=== PATIENT | female | born 1995 | race African-American/Black ===

== ENCOUNTER 2017-09-09 06:29 | Emergency (ER) | payer SELFPAY ==
[2017-09-09 08:20] LABS: #Basophils 0.1 thou/uL (0.0-0.2); #Lymphocytes 3.8 thou/uL (1.20-3.40); #Monocytes 0.5 thou/uL (0.11-0.59); #Neutrophils 6.1 thou/uL (1.40-6.50); %Basophils 0.9 % (0.0-1.0); %Eosinophils 0.4 % (0.0-10.0); %Lymphocytes 35.7 % (21.0-51.0); %Monocytes 5.2 % (0.0-10.0); Hematocrit 38.9 % (36.0-47.0); Mean Platelet Volume 7.2 fL (7.4-10.4); Red Blood Cell (RBC) Count 5.01 mill/uL (4.20-5.40); White Blood Cell (WBC) Count 10.6 thou/uL (4.8-10.8)
[2017-09-09 08:28] LABS: Bilirubin Negative (Negative); Blood, Urine Negative (Negative); Glucose, Urine (Dipstick) Negative (Negative); Ketone, Urine Negative (Negative); Nitrite Negative (Negative); Protein, Urine (Dipstick) Negative (Neg-Trace); Urobilinogen 0.2 mg/dL (0.2-1.0)
[2017-09-09] MEDS ORDERED: Acetaminophen 500 MG TAB ONE (08:42)
[2017-09-09] MEDS ORDERED: diphenhydrAMINE 50 MG/ML VIAL ONE (08:42)
[2017-09-09] MEDS ORDERED: Metoclopramide HCl 10 MG/2 ML VIAL ONE (08:42)
[2017-09-09 08:49] LABS: Anion Gap 11 mmol/L (10-20); BUN (Urea Nitrogen) 7 mg/dL (7.0-18.7); Calc. Creatinine Clearance 0 mL/min (70-130); Calcium 9.7 mg/dL (7.8-10.44); Carbon Dioxide 23 mmol/L (22-29); Chloride 103 mmol/L (98-107); Estimated GFR-MDRD Greater than 90
--- NOTE | 2017-09-09 09:28 | ULT ---
PELVIC ULTRASOUND: Date: 09/09/17 HISTORY: Pelvic pain. FINDINGS: There is a viable intrauterine . Gestational age by ultrasound is 6 weeks and 2 days. Gesta tional sac appears normally maintained. Yolk sac is seen. heart rate recorded at 112 beats/min native. No evidence of subchorionic hemorrhage. There is a complex right ovarian cyst measuring 3.0 cm. Color Doppler with spectral analysis shows b lood flow to both ovaries. IMPRESSION: 1. Single viable intrauterine with gestational age by ultrasound consistent with 6 weeks and 2 days gestation. 2. Right ovarian cyst. POS: [facility]
== END 2017-09-09 10:29 | disposition home or self-care (01) ==
LOC: ERS 06:29
DX: O21.0 Mild hyperemesis gravidarum (principal); O99.341 Other mental disorders complicating pregnancy, first trimester; F31.9 Bipolar disorder, unspecified; O24.311 Unspecified pre-existing diabetes mellitus in pregnancy, first trimester; E11.9 Type 2 diabetes mellitus without complications; Z79.4 Long term (current) use of insulin; Z3A.01 Less than 8 weeks gestation of pregnancy
CPT/HCPCS: 76856; 80048; 81003; 84702; 85025; 87086; 96361; 96365; 96375; J1200; J2765

== ENCOUNTER 2017-09-12 12:31 | Emergency (ER) | payer SELFPAY ==
[2017-09-12] MEDS ORDERED: Acetaminophen 325 MG TAB ONE (12:59)
== END 2017-09-12 13:26 | disposition home or self-care (01) ==
LOC: ERS 12:31
DX: O9A.211 Injury, poisoning and certain other consequences of external causes complicating pregnancy, first trimester (principal); T88.1XXA Other complications following immunization, not elsewhere classified, initial encounter; O99.89 Other specified diseases and conditions complicating pregnancy, childbirth and the puerperium; R11.0 Nausea; O99.341 Other mental disorders complicating pregnancy, first trimester; F31.9 Bipolar disorder, unspecified; O24.911 Unspecified diabetes mellitus in pregnancy, first trimester; E11.9 Type 2 diabetes mellitus without complications; Z79.4 Long term (current) use of insulin; Z3A.01 Less than 8 weeks gestation of pregnancy
CPT/HCPCS: 99283

== ENCOUNTER 2017-10-09 16:55 | Emergency (ER) | payer SELFPAY ==
[2017-10-09 17:51] LABS: Bilirubin Negative (Negative); Blood, Urine Negative (Negative); Glucose, Urine (Dipstick) Negative (Negative); Ketone, Urine Negative (Negative); Nitrite Negative (Negative); Protein, Urine (Dipstick) Negative (Neg-Trace); Urobilinogen 0.2 mg/dL (0.2-1.0)
[2017-10-09 18:17] LABS: #Basophils 0.1 thou/uL (0.0-0.2); #Lymphocytes 2.6 thou/uL (1.20-3.40); #Monocytes 0.7 thou/uL (0.11-0.59); #Neutrophils 5.8 thou/uL (1.40-6.50); %Basophils 0.6 % (0.0-1.0); %Eosinophils 0.5 % (0.0-10.0); %Lymphocytes 28.2 % (21.0-51.0); %Monocytes 7.9 % (0.0-10.0); Red Blood Cell (RBC) Count 4.59 mill/uL (4.20-5.40); White Blood Cell (WBC) Count 9.3 thou/uL (4.8-10.8)
[2017-10-09 18:25] LABS: ALT (SGPT) 23 U/L (8-55); AST (SGOT) 13 U/L (5-34); Alkaline Phosphatase 71 U/L (40-150); Anion Gap 12 mmol/L (10-20); BUN (Urea Nitrogen) 6 mg/dL (7.0-18.7); Bilirubin, Total 0.3 mg/dL (0.2-1.2); Calc. Creatinine Clearance 0 mL/min (70-130); Calcium 9.4 mg/dL (7.8-10.44); Carbon Dioxide 22 mmol/L (22-29); Chloride 106 mmol/L (98-107); Estimated GFR-MDRD Greater than 90; Globulin 3.6 g/dL (2.4-3.5); Lipase 13 U/L (8-78); Protein, Total 7.5 g/dL (6.0-8.3)
[2017-10-09] MEDS ORDERED: Metoclopramide HCl 10 MG/2 ML VIAL ONE (18:34)
[2017-10-09 18:49] LABS: Anion Gap 9 mmol/L (-14-95); T. Carbon Dioxide 23.7 mmol/L (1.0-85.0); pH (Venous) 7.379 (7.35-7.45); vO2 Saturation-calc 84.8 % (0.0-100.0)
== END 2017-10-09 20:24 | disposition home or self-care (01) ==
LOC: ERS 16:55
DX: O99.611 Diseases of the digestive system complicating pregnancy, first trimester (principal); K52.9 Noninfective gastroenteritis and colitis, unspecified; O24.311 Unspecified pre-existing diabetes mellitus in pregnancy, first trimester; O99.341 Other mental disorders complicating pregnancy, first trimester; F31.9 Bipolar disorder, unspecified; Z79.4 Long term (current) use of insulin; Z79.899 Other long term (current) drug therapy; Z3A.10 10 weeks gestation of pregnancy
CPT/HCPCS: 80053; 81003; 81025; 82010; 82330; 82803; 83690; 84702; 85025; 96361; 96365; J2765

== ENCOUNTER 2017-11-13 18:30 | Emergency (ER) | payer SELFPAY ==
[2017-11-13 18:57] LABS: #Basophils 0.1 thou/uL (0.0-0.2); #Monocytes 0.6 thou/uL (0.11-0.59); #Neutrophils 8.2 thou/uL (1.40-6.50); %Basophils 0.7 % (0.0-1.0); %Eosinophils 0.3 % (0.0-10.0); %Lymphocytes 25.2 % (21.0-51.0); %Monocytes 5.1 % (0.0-10.0); Hematocrit 34.4 % (36.0-47.0); Mean Platelet Volume 6.8 fL (7.4-10.4); Red Blood Cell (RBC) Count 4.43 mill/uL (4.20-5.40)
[2017-11-13 19:17] LABS: ALT (SGPT) 10 U/L (8-55); AST (SGOT) 8 U/L (5-34); Alkaline Phosphatase 78 U/L (40-150); Anion Gap 11 mmol/L (10-20); BUN (Urea Nitrogen) 7 mg/dL (7.0-18.7); Bilirubin, Total 0.2 mg/dL (0.2-1.2); Calc. Creatinine Clearance 0 mL/min (70-130); Calcium 9.7 mg/dL (7.8-10.44); Carbon Dioxide 22 mmol/L (22-29); Chloride 105 mmol/L (98-107); Estimated GFR-MDRD Greater than 90; Globulin 3.9 g/dL (2.4-3.5); Protein, Total 7.7 g/dL (6.0-8.3)
== END 2017-11-13 19:35 | disposition left against medical advice (07) ==
LOC: ERS 18:30
DX: Z53.21 Procedure and treatment not carried out due to patient leaving prior to being seen by health care provider (principal)
CPT/HCPCS: 36415; 80053; 84702; 85025

== ENCOUNTER 2018-01-18 18:41 | Day surgery (SDC) | payer OTHER ==
[2018-01-18 19:32] VITALS: BMI 41.1
[2018-01-18] MEDS ORDERED: Lactated Ringer's 1,000 ML IV SCH ×2 (19:45)
[2018-01-18] MEDS ORDERED: Morphine 5 MG/ML SYRINGE SLOW IVP SCH (20:00)
[2018-01-18] MEDS ORDERED: Ondansetron HCl/PF 4 MG/2 ML Vial IVP SCH (20:00)
[2018-01-18 20:06] LABS: Bilirubin Negative (Negative); Blood, Urine Negative (Negative); Clarity CLEAR (Clear); Glucose, Urine (Dipstick) Negative (Negative); Leukocyte Negative (Negative); Nitrite Negative (Negative); Protein, Urine (Dipstick) Negative (Neg-Trace); Specific Gravity, Urine 1.018 (1.002-1.036)
[2018-01-18 20:08] LABS: Bacteria/HPF Rare-Few HPF (None Seen); Hyaline Casts/LPF 0-3 HYALINE CAST LPF (0-3 Hyaline); Pathc Cast-AUWi Flag 0.13 (0-2.49); RBC/HPF 0-3 HPF (0-3); Squamous Epithelial 0-3 HPF (0-3); WBC/HPF 0-3 HPF (0-3)
[2018-01-18] MEDS ORDERED: Morphine 10 MG/ML VIAL ONE (20:19)
[2018-01-18 20:28] LABS: FFN Internal QC Analyzer PASS (PASS); FFN Internal QC Cassette PASS (PASS); Fetal Fibronectin Negative (Negative)
[2018-01-18] MEDS ORDERED: Morphine 2 MG/ML SYRINGE SLOW IVP SCH (21:45)
[2018-01-18] MEDS ORDERED: Acetaminophen 500 MG TAB PO SCH (21:45)
[2018-01-18] MEDS ORDERED: Morphine 2 MG/ML SYRINGE IJ SCH (22:00)
--- NOTE | 2018-01-19 01:03 | PRG ---
DATE OF SERVICE: 01/18/2018 OB ER ENCOUNTER PRIMARY OB: Dr. Bronson. CHIEF COMPLAINT: Abdominal pains and back pain. HISTORY OF PRESENT ILLNESS: The patient is a 22-year-old G1, P0 female with an intrauterine at 24 weeks, who is presenting to Labor and Delivery with 1 day history of worsening lower back pain with pelvic pain and pressure. The patient reports that the back pain has progressively gotten worse over several days and is most notable with activities such as getting out of bed, getting out of the car and movement in general. She reports there is a second pain that seems to come and go that she feels pressure in her lower pelvic region that has gotten more intense. She reports that she feels that every 10- 15 minutes. The patient denies intercourse in the last couple days. Denies urinary urgency. Denies fever, nausea, vomiting, diarrhea or constipation. She denies vaginal bleeding or leakage of fluid. She denies any rash. She denies chest pain, shortness of breath, fever, fall or headache. PAST MEDICAL HISTORY: The patient reports a history of bipolar disorder, depression. PAST SURGICAL HISTORY: Tonsillectomy. SOCIAL HISTORY: Denies any alcohol, drug or tobacco use at this . OBSTETRIC HISTORY: This is her first . OBSTETRIC LABORATORY DATA: Unavailable. REVIEW OF SYSTEMS: Per HPI. PRESCRIPTION: None. ALLERGIES: No known drug allergies. PHYSICAL EXAMINATION: VITAL SIGNS: Blood pressure 126/74, heart rate of 89, respiratory rate of 18, satting 99% on room air, temperature 98.1. GENERAL: She appears to be in no acute distress. The patient appears to be in some distress and concern and shows some difficulty in moving. She is alert and oriented and cooperative and pleasant to interact with. HEAD: Normocephalic, atraumatic. LUNGS: Clear to auscultation bilaterally. HEART: Regular rate and rhythm. ABDOMEN: Gravid and soft. She has some tenderness to palpation in her lower pelvis. The patient has no CVA tenderness. There is no paravertebral tenderness. She does have tenderness in her SI joint region to palpation, which seems to be her primary pain and shows visible discomfort in trying to sitting up. EXTREMITIES: Nontender, not edematous. PELVIC: Vulva is without masses, lesions or erythema. Vagina is moist. Cervix is closed and thick. heart tracing performed for threatened labor. Baseline is noted to be in the 150s with moderate long-term variability, there are no contractions visible on the tocometer. Fetus fibronectin collected was came back negative. VP3 positive for bacterial vaginosis or Gardnerella. Urinalysis was negative for nitrites, leukocyte esterase, blood ketones, bacteria. ASSESSMENT AND PLAN: The patient is a 22-year-old female that came in with a significant back and abdominal pain that seems to be primarily musculoskeletal. We are able to give her morphine 2mg IV and 4mg IM and 1000mg p.o. Tylenol, which has improved her pain significantly. We provided reassurance that chances of her going into labor in the next couple weeks or very low with negative fibronectin. We explained the findings of Gardnerella and bacterial vaginosis and I have offered a prescription of metronidazole to be taken twice a day for the next week, which she is accepted. We reviewed the negative findings of her urinalysis. The patient has been encouraged to take Tylenol 1 gram of 3 times a day. She has an appointment on the with Dr. Bronson, which we have encouraged that if she does not feel improvement in the next couple days to attempt to see her sooner. LAMBERT
== END 2018-01-18 22:23 | disposition home or self-care (01) ==
LOC: L&D/OP 18:41 → ERS 18:41 → L&D/OP 18:44
PROVIDERS: ATTEND Obstetrics & Gynecology
DX: O99.89 Other specified diseases and conditions complicating pregnancy, childbirth and the puerperium (principal); R10.2 Pelvic and perineal pain; M54.5 Low back pain; O99.343 Other mental disorders complicating pregnancy, third trimester; F31.9 Bipolar disorder, unspecified; Z3A.24 24 weeks gestation of pregnancy; Z79.899 Other long term (current) drug therapy
CPT/HCPCS: 81001; 82731; 87480; 87510; 87660; J2270; J2405

== ENCOUNTER 2018-02-16 19:21 | Day surgery (SDC) | payer OTHER ==
[2018-02-16 21:09] VITALS: BP 118/73; TEMP 98.7; BMI 42.0
[2018-02-16] MEDS ORDERED: Promethazine HCl 25 MG/ML VIAL IM/IV PRN (21:21)
--- NOTE | 2018-02-16 21:21 | PDOC.EVN ---
Event Note - Event Note Event Note: @2115: order caller note: Patient just arrived to L&D fropm the ED as a Patient of Dr Bronson. The patient is a 22 yo at 28 weeks 5 days, here for N/V, body aches. Flu swab was negative in the ED. She is a Type 1 diabetic on insulin and the Dstick in the ED was 65. Full H&P to follow when patient ready in the room. Orders for labs and IVFs in process.
[2018-02-16] MEDS ORDERED: Lactated Ringer's 1,000 ML IV SCH ×2 (21:30)
--- NOTE | 2018-02-16 21:35 | PDOC.LDHP ---
Labor and Delivery H&P Chief complaint: other (Nausea and vomiting, fever at home) HPI: This is a patient of Dr Bronson who arrived about 15 minutes ago to L&D after first being evaluated in the ED for "nausea and vomiting". She is a Class C Diabteic on Lantus 65 units every night and NovoLog sliding scale with meals. She does not have any contractions or Vag bleed. has good FM. No headaches. No sick contacts. No dysuria, no diarrhea. No URI sxs. Some yellowish vaginal dsch reported. The flu swab was negative in the ED and the accucheck was 65 there as well. She is a patient of Dr Oseguera A complete 12 point Review of systems was performed and it is as in the HPI. Family History: Noncontributory. Current gestational age (weeks): 28 (5 days) Dating criteria: last menstrual period Grav: 1 Para: 0 Current complications: pregestational diabetes (Class C...fist diagnosed at age 13. On Lantus and Nonolog as per HPI.) Abnormal US findings: No Current medications: other (Lantus, Novolog) Previous surgical history: other (Umbilical hernia repair, Tonsils) Allergies/Adverse Reactions: Allergies Allergy/AdvReac Type Severity Reaction Status Date / Time No Known Allergies Allergy Verified 02/16/18 21:09 Social history: none - Physical Exam Vital signs reviewed and normal: yes General: NAD Heart: RRR Lungs: CTAB Abdomen: gravid (Obese abdomen) Extremeties: no edema FHT: category 1 [place] contractions every: none - Assessment 1. Diabetes in 2. Nausea and vomiting- probable gastroenteritis 3. 28 week - Plan Plan: observation in L&D (We will: 1. order CBC, CMP, cath UA. 2. IVF hydrate with LR 3. Phenergan prn 4. Order GC/Chl and VP3 5. Keep on monitors. Currently , there is no evidence of labor so a cervical exam was deferred. I explained this to the patient. No evidence of ketoacidosis at this time. Likely GI virus. Follow up)
[2018-02-16 22:09] LABS: #Lymphocytes 2.3 thou/uL (1.20-3.40); #Monocytes 0.7 thou/uL (0.11-0.59); %Basophils 0.2 % (0.0-1.0); %Eosinophils 0.2 % (0.0-10.0); %Lymphocytes 20.9 % (21.0-51.0); %Monocytes 6.2 % (0.0-10.0); %Neutrophils 72.6 % (42.0-75.0); Hemoglobin 10.8 g/dL (12.0-16.0); Mean Corpuscular Hemoglobin 24.5 pg (27.0-31.0); Mean Corpuscular Volume 74.1 fl (81.0-99.0); Mean Platelet Volume 6.8 fL (7.4-10.4); Platelet Count 375 thou/uL (130-400); RBC Distribution Width 13.8 % (11.5-14.5); Red Blood Cell (RBC) Count 4.42 mill/uL (4.20-5.40)
[2018-02-16 22:14] LABS: Bilirubin Negative (Negative); Blood, Urine Negative (Negative); Clarity CLEAR (Clear); Glucose, Urine (Dipstick) Negative (Negative); Leukocyte Negative (Negative); Nitrite Negative (Negative); Protein, Urine (Dipstick) Negative (Neg-Trace); Specific Gravity, Urine 1.021 (1.002-1.036); pH, Urine 6.5 (5.0-9.0)
[2018-02-16 22:32] LABS: ALT (SGPT) 20 U/L (8-55); AST (SGOT) 15 U/L (5-34); Albumin 3.7 g/dL (3.5-5.0); Alkaline Phosphatase 125 U/L (40-150); Anion Gap 13 mmol/L (10-20); BUN (Urea Nitrogen) 6 mg/dL (7.0-18.7); Bilirubin, Total 0.2 mg/dL (0.2-1.2); Calc. Creatinine Clearance 265 mL/min (70-130); Calcium 9.4 mg/dL (7.8-10.44); Carbon Dioxide 21 mmol/L (22-29); Chloride 107 mmol/L (98-107); Estimated GFR-MDRD Greater than 90; Globulin 3.2 g/dL (2.4-3.5); Glucose 65 mg/dL (70-105); Protein, Total 6.9 g/dL (6.0-8.3); Sodium 137 mmol/L (136-145)
--- NOTE | 2018-02-16 22:44 | PDOC.EVN ---
Event Note - Event Note Event Note: Lab check: CBC with borderline WBC at 11, otherwise normal. CMP normal. UA without evidence of infection. VP3 and GC are pending. Patient states she feels better. She is still afebrile and in no acute distress. I cannot find any localized abnormalities. This may be gastroenteritis (viral). No evidence hyperglycemia. We can follow vaginal tests as outpatient. Will release home with follow up in [facility] in 24-48 hours.
--- NOTE | 2018-02-16 23:05 | PDOC.EVN ---
Event Note - Event Note Event Note: Discahrge note: VP3 positive for BV. I will send home with a RX for flagyl 500mg po BID X 7 days and phenergan prn.
[2018-02-17 22:31] LABS: Chlamydia by PCR Not Detected (NotDetected); GC by PCR Not Detected (NotDetected)
== END 2018-02-16 23:13 | disposition home or self-care (01) ==
LOC: ERS 19:21 → L&D/OP 20:39
PROVIDERS: ATTEND Obstetrics & Gynecology
DX: O99.89 Other specified diseases and conditions complicating pregnancy, childbirth and the puerperium (principal); R11.2 Nausea with vomiting, unspecified; O24.013 Pre-existing type 1 diabetes mellitus, in pregnancy, third trimester; E10.9 Type 1 diabetes mellitus without complications; Z79.4 Long term (current) use of insulin; Z79.899 Other long term (current) drug therapy; Z3A.28 28 weeks gestation of pregnancy; Z98.890 Other specified postprocedural states
CPT/HCPCS: 36416; 51701; 80053; 81003; 85025; 87480; 87491; 87510; 87591; 87660; 87804; 96360; 96361; 96375; 99283; 99284; J2550

== ENCOUNTER 2018-02-26 14:45 | Emergency (ER) | payer OTHER ==
[2018-02-26 15:41] LABS: #Lymphocytes 1.9 thou/uL (1.20-3.40); #Monocytes 0.6 thou/uL (0.11-0.59); #Neutrophils 6.4 thou/uL (1.40-6.50); %Basophils 0.3 % (0.0-1.0); %Eosinophils 0.5 % (0.0-10.0); %Lymphocytes 21.3 % (21.0-51.0); %Monocytes 6.8 % (0.0-10.0); %Neutrophils 71.1 % (42.0-75.0); Hemoglobin 10.7 g/dL (12.0-16.0); Mean Corpuscular HGB CONC 33.1 g/dL (32.0-36.0); Mean Corpuscular Hemoglobin 24.4 pg (27.0-31.0); Mean Corpuscular Volume 73.9 fl (81.0-99.0); Mean Platelet Volume 6.8 fL (7.4-10.4); Platelet Count 321 thou/uL (130-400); RBC Distribution Width 14.1 % (11.5-14.5); Red Blood Cell (RBC) Count 4.38 mill/uL (4.20-5.40); White Blood Cell (WBC) Count 8.9 thou/uL (4.8-10.8)
[2018-02-26 16:02] LABS: ALT (SGPT) 20 U/L (8-55); AST (SGOT) 16 U/L (5-34); Albumin 3.4 g/dL (3.5-5.0); Alkaline Phosphatase 115 U/L (40-150); Anion Gap 13 mmol/L (10-20); BUN (Urea Nitrogen) 6 mg/dL (7.0-18.7); Bilirubin, Total 0.2 mg/dL (0.2-1.2); CK (CPK) 32 U/L (29-168); Calc. Creatinine Clearance 0 mL/min (70-130); Calcium 9.2 mg/dL (7.8-10.44); Carbon Dioxide 20 mmol/L (22-29); Chloride 107 mmol/L (98-107); Estimated GFR-MDRD Greater than 90; Globulin 3.4 g/dL (2.4-3.5); Glucose 177 mg/dL (70-105); Potassium 3.8 mmol/L (3.5-5.1); Protein, Total 6.8 g/dL (6.0-8.3); Sodium 136 mmol/L (136-145)
[2018-02-26 16:06] LABS: CKMB 0.7 ng/mL (0-6.6); Troponin I Less than 0.010 ng/mL (< 0.028)
[2018-02-26] MEDS ORDERED: Acetaminophen 325 MG TAB ONE ×2 (17:58→20:54)
[2018-02-26] MEDS ORDERED: diphenhydrAMINE 50 MG/ML VIAL ONE (18:03)
[2018-02-26] MEDS ORDERED: Promethazine HCl 25 MG/ML VIAL ONE (18:03)
--- NOTE | 2018-02-26 21:11 | MRI ---
BRAIN MRI WITHOUT IV CONTRAST: 02/26/18 HISTORY: 22-year-old female with headache and numbness. There is no focal mass or midline shift. No intra or extra-axial hemorrhage No evidence of acute infa rct. There are normal expected flow voids noted. Very minute nasal sinus mucosal congestion. IMPRESSION: No significant acute intracranial process. No evidence for acute infarct. No evidence for other signi ficant acute process. POS: [facility]
--- NOTE | 2018-02-26 21:31 | MRI ---
MRV ANGIOGRAM BRAIN: 02/26/18 HISTORY: 22-year-old female with history of left sided headache and numbness. Patient is . Magnetic resonance venogram examination of the brain is performed. Exam includes MIP images. The supe rior sagittal sinus as well as the other visualized sinuses appear normal and intact. Inferior sagitt al sinus, straight sinus, and transverse and sigmoid sinuses appear unremarkable. No evidence for jude ous sinus occlusive disease. IMPRESSION: Normal magnetic resonance venogram of the head. POS: [facility]
== END 2018-02-26 21:07 | disposition home or self-care (01) ==
LOC: ERS 14:45
DX: O99.353 Diseases of the nervous system complicating pregnancy, third trimester (principal); G43.909 Migraine, unspecified, not intractable, without status migrainosus; O99.343 Other mental disorders complicating pregnancy, third trimester; F31.9 Bipolar disorder, unspecified; O24.913 Unspecified diabetes mellitus in pregnancy, third trimester; Z79.4 Long term (current) use of insulin; Z3A.30 30 weeks gestation of pregnancy
CPT/HCPCS: 36415; 70544; 70551; 80053; 82553; 83605; 84484; 85025; 85652; 86140; 93005; 96365; 96375; J1200; J2550

== ENCOUNTER 2018-03-11 04:34 | Day surgery (SDC) | payer OTHER ==
[2018-03-11 05:46] VITALS: BMI 41.8
--- NOTE | 2018-03-11 06:36 | PDOC.LDHP ---
Labor and Delivery H&P Chief complaint: contractions HPI: 22 y/o G1 at 32w0d, patient of Dr. 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 She reports they are about every 10 mins, have gotten stronger, now 7/10 pain. Denies VB, LOF, or decreased FM. ROS neg for HEENT, cv, pulm, gi, gu, neuro, psych, skin, musculoskeletal or constitutional symptoms other than mentioned above. OB History Details: First Current complications: pregestational diabetes Past Medical History: Type 2 DM, diagnosed at 13 y/o Previous surgical history: other (umbilical hernia repair, tonsillectomy) Allergies/Adverse Reactions: Allergies Allergy/AdvReac Type Severity Reaction Status Date / Time No Known Allergies Allergy Verified 02/16/18 21:09 Social history: none - Physical Exam Vital signs reviewed and normal: yes General: NAD, resting Lungs: nonlabored breathing Abdomen: gravid Extremeties: no edema FHT: category 1 (130s, mod variability, + accels, no decels) [place] contractions every: 5 mins - Vaginal Exam cm dilated: 0 Effacement: 0% Station: -3 - Assessment 22 y/o G1 at 32w0d with contractions. FFN negative. status reassuring with reactive NST. - Plan -: IV hydrating at this time. Will hand over to Dr. Shabazz for final dispo.
[2018-03-11 07:16] LABS: FFN Internal QC Analyzer PASS (PASS); FFN Internal QC Cassette PASS (PASS); Fetal Fibronectin Negative (Negative)
[2018-03-11] MEDS ORDERED: Lactated Ringer's 1,000 ML IV SCH (07:45)
[2018-03-11 09:20] LABS: Bilirubin Negative (Negative); Blood, Urine Negative (Negative); Clarity CLEAR (Clear); Glucose, Urine (Dipstick) Negative (Negative); Leukocyte Negative (Negative); Nitrite Negative (Negative); Protein, Urine (Dipstick) Negative (Neg-Trace); Specific Gravity, Urine 1.012 (1.002-1.036)
[2018-03-11 09:21] LABS: Bacteria/HPF None Seen HPF (None Seen); Hyaline Casts/LPF 0-3 HYALINE CAST LPF (0-3 Hyaline); RBC/HPF 0-3 HPF (0-3); Squamous Epithelial 0-3 HPF (0-3); WBC/HPF 0-3 HPF (0-3)
[2018-03-11] MEDS ORDERED: Acetaminophen 500 MG TAB PO SCH (09:30)
[2018-03-11] MEDS ORDERED: Insulin NPH/Reg Insulin Hm 300 UNITS/3 ML VIAL SC SCH (11:30)
--- NOTE | 2018-03-11 11:34 | PRG ---
ADDENDUM This is an addendum to the same encounter dictated by Dr. Graves. Ms. Keisha Laura was checked out to me this morning on 03/11/2018 who had presented with contractions after an incident at work. Pt was initially seen by Dr Graves. The patient has a negative fibronectin and has been given a liter of fluid. Upon my arrival, the patient reports that she continued to have abdominal pains with her contractions. I did reiterate to her the reassurance of a negative fibronectin and a closed cervix on exam and that we are going to concentrate on trying to help her feel better. PMH is significant for DM and take insulin daily. She reports goodcontrol with blood sugar in the low 100's. In our conversation, the patient reports that she has chronic BV, has been treated 4 times without success. In further conversation, the patient reports that she uses soap to wash inside her vagina in an effort to "clean herself". The patient reports that she has not been on a probiotic. We did discuss giving her 2 Tylenol, which she has accepted. The patient will be discharged home with instructions to take a probiotic specifically developed for renewing vaginal judie. I have written down the name for her and it is available at [facility]. The name is Renew Life Ultimate Judie Probiotic Women's Care. In addition, I have asked her to stop using soap on the inside of her vagina and the patient is also being given a 10-day supply of MetroGel. Urinalysis was performed during my time with Ms. Laura and is negative for any signs of infection, negative nitrites, negative leukocyte esterase, negative squamous cells, negative bacteria. The patient is being discharged to home with the already given instructions. She has follow up with Dr. Bronson tomorrow. [facility]PITALYonis
== END 2018-03-11 10:20 | disposition home or self-care (01) ==
LOC: LAB 04:34 → L&D/OP 10:20
PROVIDERS: ATTEND Obstetrics & Gynecology
DX: O60.03 Preterm labor without delivery, third trimester (principal); O24.113 Pre-existing type 2 diabetes mellitus, in pregnancy, third trimester; E11.9 Type 2 diabetes mellitus without complications; Z3A.32 32 weeks gestation of pregnancy; Z79.4 Long term (current) use of insulin; Z79.899 Other long term (current) drug therapy
CPT/HCPCS: 81001; 82731

== ENCOUNTER 2018-03-11 22:16 | Observation (INO) | payer OTHER ==
[2018-03-11 22:25] VITALS: BMI 41.8
[2018-03-11] MEDS ORDERED: NIFEdipine 10 MG CAP PO SCH (22:45)
[2018-03-11] MEDS ORDERED: Lactated Ringer's 1,000 ML IV SCH (22:45)
[2018-03-11 23:15] LABS: Amnisure Internal Control QC ACCEPTABLE (ACCEPTABLE); Amnisure Test No Membranes Rupture (No Rupture)
[2018-03-12] MEDS ORDERED: metroNIDAZOLE 500 MG TAB PO SCH ×2 (00:15→09:00)
[2018-03-12] MEDS ORDERED: Zolpidem Tartrate 5 MG TAB PO PRN (01:56)
[2018-03-12] MEDS ORDERED: Ondansetron HCl/PF 4 MG/2 ML Vial IVP PRN (01:56)
[2018-03-12] MEDS ORDERED: Lactated Ringer's 1,000 ML IV SCH (02:00)
[2018-03-12 04:15] VITALS: BP 126/78; TEMP 98.4
--- NOTE | 2018-03-12 07:34 | SS ---
DATE OF ENCOUNTER: 03/11/2018 DATE OF DISCHARGE: 03/12/2018 ADMITTING DIAGNOSIS: contractions. DISCHARGE DIAGNOSIS: contractions with spontaneous arrest. HOSPITAL COURSE: The patient is a 22-year-old G1, P0 female with intrauterine at 32 weeks, who returned last night with uterine contractions. 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 The patient's evaluation w as negative for labor, for urinary tract infection and as the patient had been feeling better, was ul timately discharged home with a diagnosis of chronic BV and was given instructions to take another co urse of Flagyl, makes some hygiene changes in her bathing practices and to begin a probiotic to encou rage healthy vaginal judie. The patient returned last night with concerns of strong uterine contract ions and worried she was going into labor. In her evaluation, the patient was given 1 dose of Procar levy 20 mg and the process of protocol for labor. In her workup, the patient was noted to hav e a cervical length of 2.7 cm and was still closed on bimanual exam. The patient received IV fluids and a dose of metronidazole and 2 mg of Stadol. Her contractions resolved and the patient slept thro ugh the night without contractions returning. This morning she feels much better and desires dischar ge to home. The patient has an appointment with Dr. Bronson this morning at 9 o'clock. VITAL SIGNS: This morning, blood pressure is 120/68, heart rate of 101, respiratory rate of 18, temp erature 98.4. GENERAL: She appears to be in no acute distress. She is alert and oriented, cooperative and pleasan t to interact with. ABDOMEN: Gravid, soft, nontender. On initial exam, the patient appeared to be distress and scared. She had some tenderness across the upper abdomen. LUNGS: Lungs were clear. HEART: Heart was regular. PELVIC: Cervix was closed, thick and high. heart tracing demonstrated baby with a baseline in the 130s with moderate long-term variability , positive accelerations, no decelerations, and has been a category 1 strip through the night. Her t ocometer showed irritability, but no consistent contraction pattern. Even into this morning the maryan ent is still showing some irritability, but not noticed by the patient. A bedside OB ultrasound was performed for cervical length and for OB evaluation. She was noted to have polyhydramnios at 26 cm A FI and cervical length of 2.7 cm. ASSESSMENT AND PLAN: The patient is being discharged to home. She has follow up with Dr. Bronson thi s morning at 9 o'clock and is interested in going home to eat and cleaning up before her appointment. She was given the option of me contacting Dr. Bronson for her to be seen here in the clinic as Dr. Beni pettit already has the patient's to see here in the hospital, but the patient declined. She has gone home with her previous instructions to MetroGel to be taken at night for the next 10 days with a prob iotic designed to promote healthy vaginal judie and to refrain from washing her vagina with soap and water. The patient is being discharged to home without complications.
--- NOTE | 2018-03-12 09:19 | ULT ---
PRELIMINARY REPORT/[facility]/EMERGENCY AFTER HOURS PROCEDURE: Addendum created by Enrique Bryant MD on 03/12/2018 1:41 AM Central Time ([place] & [place]) THIS REPORT CONTAINS FINDINGS THAT MAY BE CRITICAL TO PATIENT CARE. The findings were verbally communicated via telephone conference with JACINTA CASILLAS MD at 1:40 AM CDT on 03/12/2018. The findings were acknowledg ed and understood. Initial Report created on 03/12/2018 1:32 AM Central Time ([place] & [place]) EXAM: US Uterus, Limited US , Transvaginal CLINICAL HISTORY: 22 years old, female; Pain; complicated by abdominal or pelvic pain; Lower; Third trimester ; Gestational age or lmp: 34w2d; ; Patient HX: Pelvic pain, eval placenta and cervical length , no vaginal bleeding TECHNIQUE: Real-time ultrasound of the maternal uterus (limited) with image documentation. Transvaginal imaging was used for evaluation of the cervix. COMPARISON: No relevant prior studies available. FINDINGS: Transabdominal obstetrical ultrasound was performed. Transvaginal ultrasound was performed for evalua tion of the cervix. Fetus: Single living intrauterine gestation. Heart rate: 144 bpm Presentation: Vertex. Placenta: Posterior/fundal. No abruption. Amniotic fluid: Normal. BILL 26.7 cm. Anatomy: Not formally evaluated. BIOMETRICS Gestational age by US: 34w2d Gestational age by LMP: 32w1d EFW: 2453g-97% MATERNAL: Uterus: No myometrial mass. Cervix: Cervix measures 2.8 cm in length. Free fluid: No significant free fluid. IMPRESSION: Single viable intrauterine . Increased amniotic fluid (BILL: 26.7cm). Cervical length of 2.8c m. Findings described above. Thank you for allowing us to participate in the care of your patient. Dictated and Authenticated by: Enrique Bryant MD 03/12/2018 1:32 AM Central Time ([place] & [place]) FINAL REPORT BY DR. NGUYEN EMERGENCY AFTER HOURS STUDY ULTRASOUND OBSTETRICAL COMPLETE: Date: 03/12/18 Time: 0028 hours HISTORY: 22-year-old female with abdominal and pelvic pain. Evaluate placenta and cervical length. FINDINGS: number: [place]. lie: Cephalic. Maternal cervix: 2.8 cm long and closed. Placenta: Posterofundal. No previa or abruption. Amniotic fluid volume: Subjectively upper limits of normal for 3rd trimester. BILL = 26.7 cm. heart rate: 144 bpm The following anatomy is visualized, with no evidence of anomalies: Bladder, diaphragm, bilateral kidneys, cord insertion, three vessel cord, and fourth chamber heart. biometry: Head circumference (HC): 30.8 cm 34w 2d Biparietal diameter (BPD): 8.5 cm 34w 2d Abdominal circumference (AC): 31.9 cm 35w 5d Femur length (FL): 6.2 cm 32w 1d Average ultrasound age (AUA): 34w 2d Estimated date of delivery (WILMER): 04/21/2018 Last menstrual period (LMP): 07/30/2017 Gestational age by LMP: 32w 1d Estimated weight (EFW): 2453 g +/- 363 gm (5lb 7oz +/- 13 oz) This report agrees with the preliminary report by Barbara. IMPRESSION: 1. Live third trimester intrauterine gestation. 2. Estimated gestational age of 34 weeks, 2 days. 3. Cephalic lie. 4. Maternal cervix 2.8 cm and closed. 5. No placenta previa or abruptio placentae. 6. BILL of 26.7 cm is suggestive of polyhydramnios. Follow-up is recommended. LUIGI Galarza POS: [facility]
== END 2018-03-12 07:40 | disposition home health service (06) ==
LOC: L&D/OP 22:16 → L&D 03-12 05:35
PROVIDERS: ADMIT Obstetrics & Gynecology; ATTEND Obstetrics & Gynecology
DX: O60.03 Preterm labor without delivery, third trimester (principal); O24.113 Pre-existing type 2 diabetes mellitus, in pregnancy, third trimester; E11.9 Type 2 diabetes mellitus without complications; Z3A.32 32 weeks gestation of pregnancy; Z79.4 Long term (current) use of insulin; Z79.899 Other long term (current) drug therapy
CPT/HCPCS: 76815; 81001; 82731; 84112; 96360; 96361; 96374; 99283; 99285; G0378; J0595

== ENCOUNTER → 2018-03-25 | Day surgery (SDC) | payer OTHER ==
[2018-03-25 12:12] VITALS: BP 130/87; TEMP 98.8
[2018-03-25 12:13] VITALS: BMI 42.2
--- NOTE | 2018-03-25 12:34 | PDOC.LDHP ---
Labor and Delivery H&P Chief complaint: contractions HPI: 22 y/o G1 at 34w0d, patient of Dr. Bronson, presents with low back pain and contractions since picking up a pack of water 2 days ago. She denies any VB, LOF, or decreased FM. Has known BV being treated by her MD. ROS neg for HEENT, cv, pulm, gi, gu, neuro, psych, skin, musculoskeletal or constitutional symptoms other than mentioned above. OB History Details: First Current complications: pregestational diabetes Past Medical History: Type 2 DM diagnosed at 13 years old Depression Current medications: pre-nicolasa vitamins, other (lantus and novolog) Previous surgical history: other (hernia repair, tonsillectomy) Allergies/Adverse Reactions: Allergies Allergy/AdvReac Type Severity Reaction Status Date / Time No Known Allergies Allergy Verified 03/11/18 22:02 Social history: none - Physical Exam Vital signs reviewed and normal: yes General: NAD, resting Lungs: nonlabored breathing Abdomen: gravid Extremeties: no edema FHT: category 1 (140s, mod variability, + accels, no decels) [place] contractions every: 5-10 mins - Vaginal Exam cm dilated: 1 (Unchanged after 1 hour) Effacement: 25% Station: -3 - OB Labs Additional Labs: Laboratory Results - last 24 hr 03/25/18 03/25/18 12:00 12:20 Urine Color YELLOW Urine Clarity CLEAR Urine pH 7.0 Ur Specific [place] 1.008 Urine Protein Negative Urine Glucose (UA) Negative Urine Ketones Negative Urine Blood Negative Urine Nitrite Negative Urine Bilirubin Negative Urine Urobilinogen 1.0 Ur Leukocyte Esterase Negative Urine RBC 0-3 Urine WBC 0-3 Ur Squamous Epith Cells 0-3 Urine Bacteria None Seen Hyaline Casts 0-3 HYALINE CAST Fibronectin Negative - Assessment 22 y/o G1 at 34w0d with no e/o active labor. FFN negative. status reassuring with reactive NST. - Plan -: D/c home with precautions. Advised to keep all appointments. Next appointment tomorrow.
[2018-03-25 12:52] LABS: Bilirubin Negative (Negative); Blood, Urine Negative (Negative); Clarity CLEAR (Clear); Glucose, Urine (Dipstick) Negative (Negative); Leukocyte Negative (Negative); Nitrite Negative (Negative); Protein, Urine (Dipstick) Negative (Neg-Trace); Specific Gravity, Urine 1.008 (1.002-1.036)
[2018-03-25 12:57] LABS: Bacteria/HPF None Seen HPF (None Seen); Hyaline Casts/LPF 0-3 HYALINE CAST LPF (0-3 Hyaline); RBC/HPF 0-3 HPF (0-3); Squamous Epithelial 0-3 HPF (0-3); WBC/HPF 0-3 HPF (0-3)
[2018-03-25 13:15] LABS: FFN Internal QC Analyzer PASS (PASS); FFN Internal QC Cassette PASS (PASS); Fetal Fibronectin Negative (Negative)
== END ==
LOC: L&D/OP 11:32
PROVIDERS: ATTEND Obstetrics & Gynecology
DX: O47.03 False labor before 37 completed weeks of gestation, third trimester (principal); O24.414 Gestational diabetes mellitus in pregnancy, insulin controlled; O99.343 Other mental disorders complicating pregnancy, third trimester; F32.9 Major depressive disorder, single episode, unspecified; Z3A.34 34 weeks gestation of pregnancy; Z79.899 Other long term (current) drug therapy
CPT/HCPCS: 81001; 82731

== ENCOUNTER 2018-03-27 21:22 | Day surgery (SDC) | payer OTHER ==
[2018-03-27 21:54] VITALS: TEMP 99.2; BMI 42.7
[2018-03-27] MEDS ORDERED: Acetaminophen 500 MG TAB PO SCH (22:15)
[2018-03-27 22:19] VITALS: BP 117/75
--- NOTE | 2018-03-27 22:23 | PDOC.LDHP ---
Labor and Delivery H&P Chief complaint: other HPI: 22 y/o G1 at 34w2d, patient of Dr. Bronson, presents with elevated BP at home. She was seen in the clinic yesterday and had several mild range BPs and was told to monitor at home. She had a reading of 160/100s at home and was told to come in. She has a mild headache but has not taken anything for it. Denies VB , LOF, ctx, or decreased FM. ROS neg for HEENT, cv, pulm, gi, gu, neuro, psych, skin, musculoskeletal or constitutional symptoms other than mentioned above. OB History Details: First Current complications: pregestational diabetes Past Medical History: T2DM Depression Current medications: pre- vitamins, other (Lantus, novolog) Previous surgical history: other (umbilical hernia repair, tonsillectomy) Allergies/Adverse Reactions: Allergies Allergy/AdvReac Type Severity Reaction Status Date / Time No Known Allergies Allergy Verified 03/27/18 21:54 Social history: none - Physical Exam Vital signs reviewed and normal: yes General: NAD, resting Lungs: nonlabored breathing Abdomen: gravid Extremeties: no edema FHT: category 1 (120s, mod variability, + accels, no decels) [place] contractions every: occasional - Assessment 22 y/o G1 at 34w2d with normal BPs here. When using her home cuff at the same time as BP was taken with our cuff, home cuff read in 160s, while accurate BP was wnl. status reassuring with reactive NST. - Plan -: D/c home with precautions. Given Tylenol for RUDD. Advised to replace or calibrate BP cuff. Follow up with Dr. Bronson next week as scheduled.
== END 2018-03-27 23:10 | disposition home or self-care (01) ==
LOC: L&D/OP 21:22
PROVIDERS: ATTEND Obstetrics & Gynecology
DX: O99.89 Other specified diseases and conditions complicating pregnancy, childbirth and the puerperium (principal); R03.0 Elevated blood-pressure reading, without diagnosis of hypertension; R51 Headache; O24.113 Pre-existing type 2 diabetes mellitus, in pregnancy, third trimester; E11.9 Type 2 diabetes mellitus without complications; O99.343 Other mental disorders complicating pregnancy, third trimester; F32.9 Major depressive disorder, single episode, unspecified; Z79.4 Long term (current) use of insulin; Z79.899 Other long term (current) drug therapy; Z3A.34 34 weeks gestation of pregnancy

== ENCOUNTER 2018-04-03 12:06 | Day surgery (SDC) | payer OTHER ==
[2018-04-03 12:35] VITALS: BMI 43.9
[2018-04-03 12:40] VITALS: BP 126/84; TEMP 98.7
--- NOTE | 2018-04-03 13:04 | PDOC.LDHP ---
Labor and Delivery H&P Chief complaint: other (Patient here for burning on urination and frequency) HPI: 22 yo G1 with Class C DM on Lantus and Hemalog at 35 weeks and 2 days, sees Dr Bronson for care, here with urinary burning and frequencu. No trauma, no contractions, no HAs, no other issues. No fevers, no VB, no ROM. Good FM. Review of Systems: Complete ROS performed and negative as per HPI She has primary CS scheduled at 04/23 per Aiyana Current gestational age (weeks): 35 (2 days) Dating criteria: last menstrual period Grav: 1 Para: 0 Current complications: pregestational diabetes Abnormal US findings: No Current medications: other (Lantus and Hemalog. Has been treated for yeast in past and also used flagyl (unclear why)) Previous surgical history: other (umbilical hernia/tonsils) Allergies/Adverse Reactions: Allergies Allergy/AdvReac Type Severity Reaction Status Date / Time No Known Allergies Allergy Verified 04/03/18 12:33 Social history: none - Physical Exam Vital signs reviewed and normal: yes (BP 127/85) General: NAD Heart: RRR Lungs: CTAB Abdomen: gravid (obese) FHT: category 1 [place] contractions every: no contractions - Assessment 35 weeks, Class C DM, with urinary complaints. No evidence PTB. - Plan Plan: observation in L&D (We will: 1. check accucheck 2. Cath UA 3. Monitors for now)
[2018-04-03 13:26] LABS: Bilirubin Negative (Negative); Blood, Urine Negative (Negative); Clarity CLEAR (Clear); Glucose, Urine (Dipstick) Negative (Negative); Leukocyte Negative (Negative); Nitrite Negative (Negative); Protein, Urine (Dipstick) Negative (Neg-Trace); Specific Gravity, Urine 1.008 (1.002-1.036); Urobilinogen 0.2 mg/dL (0.2-1.0); pH, Urine 6.5 (5.0-9.0)
--- NOTE | 2018-04-03 14:16 | PDOC.EVN ---
Event Note - Event Note Event Note: UA negative, POC glucose normal. Awaiting VP3
--- NOTE | 2018-04-03 14:20 | PDOC.EVN ---
Event Note - Event Note Event Note: VP3 negative BP 150/93..states has had elevated BPs prior (CHTN?). If not severe, may await primary CS as scheduled. UP is negative. Not here for PIH related issues. Add CMP for baseline.
[2018-04-03 14:58] LABS: ALT (SGPT) 35 U/L (8-55); AST (SGOT) 29 U/L (5-34); Albumin 3.2 g/dL (3.5-5.0); Alkaline Phosphatase 160 U/L (40-150); Anion Gap 8 mmol/L (10-20); BUN (Urea Nitrogen) 6 mg/dL (7.0-18.7); Bilirubin, Total 0.3 mg/dL (0.2-1.2); Calc. Creatinine Clearance 212 mL/min (70-130); Calcium 8.8 mg/dL (7.8-10.44); Carbon Dioxide 22 mmol/L (22-29); Chloride 109 mmol/L (98-107); Estimated GFR-MDRD Greater than 90; Globulin 3.6 g/dL (2.4-3.5); Glucose 86 mg/dL (70-105); Potassium 3.3 mmol/L (3.5-5.1); Protein, Total 6.8 g/dL (6.0-8.3); Sodium 136 mmol/L (136-145)
--- NOTE | 2018-04-03 15:06 | PDOC.EVN ---
Event Note - Event Note Event Note: CMP unremarkable and repeat BPs wnl. OK for outpatient eval.
== END 2018-04-03 15:25 | disposition home or self-care (01) ==
LOC: L&D/OP 12:06
PROVIDERS: ATTEND Obstetrics & Gynecology
DX: O99.89 Other specified diseases and conditions complicating pregnancy, childbirth and the puerperium (principal); R35.0 Frequency of micturition; R30.0 Dysuria; O24.113 Pre-existing type 2 diabetes mellitus, in pregnancy, third trimester; E11.9 Type 2 diabetes mellitus without complications; Z79.4 Long term (current) use of insulin; Z3A.35 35 weeks gestation of pregnancy
CPT/HCPCS: 36415; 36416; 51701; 80053; 81003; 87480; 87510; 87660; 99284; A4353

== ENCOUNTER 2018-04-16 05:11 | Inpatient (IN) | payer OTHER ==
--- NOTE | 2018-04-15 08:14 | PDOC.LDHP ---
Labor and Delivery H&P Chief complaint: scheduled section HPI: 22 year old female at 37 weeks with Class C diabetes and mild gestation hypertension. Fetus LGA with sono 4004 grams on 04/09. Mild polyhydraminos. For primary section. Current gestational age (weeks): 37 Due date: 05/06/19 Dating criteria: first trimester ultrasound Grav: 1 Para: 0 Current complications: pregestational diabetes, gestational hypertension, other (lga --4004 grams mild polyhydraminos 26 leila) Abnormal US findings: No Current medications: none, pre-nicolasa vitamins, iron, other (Lantus 65 units q am. novolog onu unit per 3 grams carb q ac) Previous surgical history: other (tonsillectomy umbilical hernia repair) Allergies/Adverse Reactions: Allergies Allergy/AdvReac Type Severity Reaction Status Date / Time No Known Allergies Allergy Verified 04/03/18 12:33 Social history: none - Physical Exam General: NAD Heart: RRR Lungs: CTAB Abdomen: gravid FHT: category 1 - OB Labs Blood type: A RH: positive Antibody Screen: negative HIV: negative RPR: negative HEPSAg: negative Urine drug screen: not done Rubella: immune - Assessment L&D Assessment: scheduled primary section (Class C diabetes LGA Mild PIH Unfavorable cervix with diabeteic LGA)
[~2018-04-16 05:11] MED LIST: Bicitra 30 ML UDCUP PO SCH; CEFAZOLIN/Water 2 GM/20 ML SYRINGE SLOW IVP SCH; Ondansetron HCl/PF 4 MG/2 ML Vial IVP PRN; Promethazine HCl 25 MG/ML VIAL IM PRN
[2018-04-16] MEDS ORDERED: hydrALAZINE 20 MG/ML VIAL ONE (05:48)
[2018-04-16 05:53] VITALS: BMI 45.8
[2018-04-16] MEDS: Lactated Ringer's 1,000 ML IV SCH (06:36)
[2018-04-16 06:55] LABS: Hemoglobin 10.6 g/dL (12.0-16.0); Mean Corpuscular HGB CONC 34.1 g/dL (32.0-36.0); Mean Corpuscular Hemoglobin 24.3 pg (27.0-31.0); Mean Corpuscular Volume 71.2 fl (81.0-99.0); Mean Platelet Volume 8.4 fL (7.4-10.4); Platelet Count 269 thou/uL (130-400); RBC Distribution Width 15.7 % (11.5-14.5); Red Blood Cell (RBC) Count 4.35 mill/uL (4.20-5.40); White Blood Cell (WBC) Count 7.5 thou/uL (4.8-10.8)
[2018-04-16] MEDS: hydrALAZINE 20 MG/ML VIAL SLOW IVP PRN ×2 (06:55→13:11)
[2018-04-16] MEDS ORDERED: Oxytocin 10 UNITS/ML VIAL ONE (07:17)
[2018-04-16] MEDS ORDERED: Ondansetron HCl/PF 4 MG/2 ML Vial ONE ×2 (07:17→13:01)
[2018-04-16] MEDS ORDERED: Lidocaine 1% PF 5 ML VIAL ONE (07:17)
[2018-04-16] MEDS ORDERED: Bupivacaine 0.75% W/DEXTROSE 8.25% 2 ML AMP ONE (07:17)
[2018-04-16] MEDS ORDERED: Morphine PF 1 MG/ML SYR ONE (07:17)
[2018-04-16] MEDS ORDERED: ePHEDrine/0.9% NaCl/PF SYRINGE 50 mg/10 ml ONE (07:17)
[2018-04-16] MEDS ORDERED: PHENYLEPHRINE-NS 100 MCG/ML 10 ML SYRINGE ONE ×2 (07:17→13:01)
[2018-04-16] MEDS ORDERED: Calcium Gluconate 4.6 MEQ in Sodium Chloride 0.9% 100 ML IVPB PRN ×2 (07:23→09:18)
[2018-04-16] MEDS ORDERED: Labetalol HCl 100 MG/20 ML VIAL SLOW IVP PRN (07:27)
[2018-04-16] MEDS ORDERED: Magnesium Sulfate 20 GM/WATER 500 ML BAG IVPB SCH (07:30)
[2018-04-16 07:42] LABS: ALT (SGPT) 49 U/L (8-55); AST (SGOT) 46 U/L (5-34); Albumin 3.2 g/dL (3.5-5.0); Alkaline Phosphatase 186 U/L (40-150); Anion Gap 11 mmol/L (10-20); BUN (Urea Nitrogen) 7 mg/dL (7.0-18.7); Bilirubin, Total 0.3 mg/dL (0.2-1.2); Calc. Creatinine Clearance 236 mL/min (70-130); Calcium 8.7 mg/dL (7.8-10.44); Carbon Dioxide 23 mmol/L (22-29); Chloride 112 mmol/L (98-107); Estimated GFR-MDRD Greater than 90; Globulin 3.1 g/dL (2.4-3.5); Glucose 68 mg/dL (70-105); Potassium 3.5 mmol/L (3.5-5.1); Protein, Total 6.3 g/dL (6.0-8.3); Sodium 142 mmol/L (136-145)
[2018-04-16 08:05] LABS: HBSAg Index 0.19 S/CO (0-0.99); Hep B Surf Ag Non-Reactive S/CO (NonReactive); Syphilis Antibody Nonreactive (Nonreactive); Syphilis Antibody Index 0.08 S/CO (<1.00 Non-Reactive)
[2018-04-16] MEDS ORDERED: Naloxone HCl 0.4 mg/ml Vial IVP PRN ×2 (08:25)
[2018-04-16] MEDS ORDERED: diphenhydrAMINE 50 MG/ML VIAL IVP PRN (08:25)
[2018-04-16] MEDS ORDERED: Eucerin (Mineral Oil/Petrolatum,White) 30 gm Jar TOP PRN (08:25)
[2018-04-16] MEDS ORDERED: Promethazine HCl 25 MG SUPP PR PRN (08:25)
[2018-04-16] MEDS ORDERED: Meperidine HCl/PF 25 MG/ML VIAL SLOW IVP PRN (08:25)
[2018-04-16] MEDS ORDERED: Ondansetron HCl/PF 4 MG/2 ML Vial IVP PRN ×2 (08:25)
[2018-04-16] MEDS ORDERED: Promethazine HCl 25 MG/ML VIAL IM PRN (08:25)
[2018-04-16] MEDS ORDERED: Naloxone HCl 0.4 mg/ml Vial IV PRN (08:25)
[2018-04-16] MEDS ORDERED: Communication Order-Pharmacy FS SCH (08:30)
[2018-04-16] MEDS ORDERED: NS / Oxytocin 40 units/1000ml 1,000 ML ONE (09:12)
--- NOTE | 2018-04-16 09:14 | OP ---
DATE OF SERVICE: 04/16/2018 I was present and scrubbed to assist the uncomplicated primary with Dr. Adilene Bronson. Pl ease see her note for full details.
[2018-04-16] MEDS: Magnesium Sulfate 20 gm/500 ml 20 GM/500 ML BAG IVPB SCH ×2 (09:18→17:43)
--- NOTE | 2018-04-16 09:18 | PDOC.OPDEL ---
OB Operative/Delivery Note Delivery Dr/Surgeon: Aiyana Assist: Ely Pre-Delivery Diagnosis: scheduled section Procedure/Post Delivery Dx: primary low transverse CS Weeks gestation: 37 Anesthesia: spinal - Findings A Sex: female Weight: 9 lb 10 oz - 1 min: 9 - 5 min: 9 - Additional Findings/Plan Placenta delivered: manual removal findings: low transverse hysterotomy without extension, normal uterus, normal tubes, normal ovaries Estimated blood loss: 500ml Post delivery plan: recovery in LICU (blood pressure monitoring)
[2018-04-16] MEDS ORDERED: Dextrose 50% Abboject 50 ML SYRINGE SLOW IVP PRN (09:22)
[2018-04-16] MEDS ORDERED: Dextrose 5% in Water 1,000 ML IV PRN (09:22)
[2018-04-16] MEDS ORDERED: Promethazine HCl 25 MG/ML VIAL ONE (09:54)
--- NOTE | 2018-04-16 10:35 | OP ---
DATE OF PROCEDURE: 04/16/2018 PREOPERATIVE DIAGNOSES: 1. A 22-year-old -[place] female G1, P0 at 37 weeks gestation with class C, insulin-dependen t diabetes. 2. Gestational hypertension. 3. macrosomia. 4. Polyhydramnios. POSTOPERATIVE DIAGNOSES: 1. A 22-year-old -Burm[place] female G1, P0 at 37 weeks gestation with class C, insulin-dependen t diabetes. 2. Gestational hypertension. 3. macrosomia. 4. Polyhydramnios. PROCEDURE PERFORMED: Primary low transverse section without extension. SURGEON: Adilene Bronson M.D. TRUCK SAFETY INSPECTOR SURGEON: Cele Graves M.D. ANESTHESIA: Spinal block. ESTIMATED BLOOD LOSS: 500 mL COMPLICATIONS: None. COUNTS: Correct x2. ANTIBIOTICS: Two grams Ancef call center operations manager to the OR. FINDINGS: 1. Vigorous female , Apgars 9 and 9, weight 9 pounds 10 ounces with clear amniotic fluid noted. 2. Normal appearing fallopian tubes, uterus, and cervix. 3. Clear urine present in Barrera catheter post procedure. DISPOSITION: To the recovery room stable. DESCRIPTION OF OPERATIVE PROCEDURE: The patient previously received informed consent in regard to [facility]. She was taken back to the operating room where she received a spinal block without complicati ons. She was then placed in the supine position, prepped and draped in usual sterile fashion. SCDs were placed along with Barrera catheter during the prep process. A Pfannenstiel incision was then made in the lower abdomen and was carried down the fascia. Fascia was nicked in midline. Fascial incisi on was extended bilaterally using curved Mendoza scissors. The rectus fascia was then dissected superio rly and inferiorly off the rectus muscle bellies. The rectus muscle bellies were divided in the midl ine. The peritoneal cavity was entered. Garland O retractor was then placed and a 2 cm hysterotomy i ncision was made above the vesicouterine peritoneal reflection. This was extended via finger fractio nation. The amniotic bag was ruptured with clear amniotic fluid noted. The baby was delivered in ve rtex presentation. Mouth and nares were bulb suctioned on the abdomen. The cord was doubly clamped and cut and handed to the deputy county clerk, Dr. Irwin who was in attendance. The usual cord blood was obtained. The placenta was manually extracted and the uterus was curetted of any remaining placental fragments with dry laparotomy sponge. The hysterotomy incision was then closed with running locking fashion with #1 Monocryl suture in double layer closure. Hemostasis along the hysterotomy line was confirmed and the Garland O retractor was then removed. The pelvis was irrigated and suctioned. Hemo stasis again was confirmed. The rectus muscle bellies were noted to be hemostatic prior to fascial c losure. The fascia was closed with 0 PDS suture x2 in running continuous fashion. Subcutaneous tiss ue was irrigated and noted be hemostatic and was approximated with a running 3-0 plain gut suture. S kin was then stapled and surgery was terminated. There were no anesthetic or surgical complications.
[2018-04-16] MEDS ORDERED: Labetalol HCl 100 MG/20 ML VIAL SLOW IVP SCH ×2 (13:25→14:30)
[2018-04-16] MEDS ORDERED: NIFEdipine XL 30 MG TAB PO SCH (14:15)
[2018-04-16] MEDS ORDERED: HYDROcodone/Acetaminophen 5/325 mg Tablet PO PRN ×2 (20:06)
[2018-04-16] MEDS ORDERED: Acetaminophen 1,000 MG in Premix Bag 1 BAG IVPB SCH (20:15)
[2018-04-17] MEDS: Lactated Ringer's 1,000 ML IV SCH ×2 (01:58→12:54)
[2018-04-17] MEDS ORDERED: Ondansetron ODT 4 MG TAB PO PRN (02:57)
[2018-04-17] MEDS: Magnesium Sulfate 20 gm/500 ml 20 GM/500 ML BAG IVPB SCH (03:51)
[2018-04-17] MEDS: HumaLOG 300 UNITS/3 ML VIAL SC PRN ×2 (04:04→18:25)
[2018-04-17] MEDS ORDERED: Adacel (T-DAP) 0.5 ML VIAL IM ONE (08:32)
[2018-04-17] MEDS ORDERED: Bisacodyl 10 MG SUPP PR PRN (08:32)
--- NOTE | 2018-04-17 08:40 | PDOC.PP ---
Post Progress Note Post Day #: 1.Feeling well this morning. Baby doing well. No nausea. Adequate pain cont PO intake tolerated: yes Flatus: yes Ambulation: no Vital Signs (12 hours) Temp Pulse Resp BP Pulse Ox 04/17/18 07:52 98.9 F 109 H 20 92 L 04/17/18 07:30 116 H 16 122/64 04/17/18 07:15 99.1 F 115 H 18 126/77 92 L 04/17/18 00:00 98.9 F 109 H 20 Weight Weight 267 lb - Physical Examination Cardiovascular: no m/r/g, RRR Respiratory: clear to auscultation bilaterally, non-labored breathing Abdominal: + bowel sounds, lochia, no distention, appropriately TTP Result Diagrams: 04/16/18 06:30 04/16/18 06:30 Additional Labs: Post Labs Blood Type A POSITIVE 04/16/18 06:30 Hep Bs Antigen Non-Reactive S/CO (NonReactive) 04/16/18 06:30 - Assessment/Plan Post op day 1-primary c section for Class C IDDM/Severe Pre eclampsia by blood pressure criteria. macrosomia 4300 gram and polyhydraminos. Blood pressures well controlled with procardia 30 mg xl and enalapril 5 mg /day Glycemic control adequate with sliding scale with minimal oral intake. Magnesium discontinued. Initiate novolog 1 unit/5 gram carb q ac and 1/2 dose Lantus 30 units q hs....Accuchek q ac and hs.. Increase activity/routine post op care.
[2018-04-17] MEDS: Docusate Calcium (SURFAK) 240 MG CAP PO SCH ×2 (09:35→21:18)
[2018-04-17] MEDS: Prenatal Vitamin 1 TAB PO SCH (09:35)
[2018-04-17] MEDS: NIFEdipine XL 30 MG TAB PO SCH (09:37)
[2018-04-17] MEDS: Simethicone Chewable 80 MG TAB PO PRN ×2 (10:51→23:39)
[2018-04-17] MEDS: Ibuprofen 800 MG TAB PO SCH ×2 (10:53→21:18)
[2018-04-17] MEDS: HumaLOG 300 UNITS/3 ML VIAL SC SCH ×3 (12:05→21:23)
[2018-04-17] MEDS: HYDROcodone/Acetaminophen 10/325 mg Tablet PO PRN ×3 (13:49→23:38)
--- NOTE | 2018-04-17 14:29 | ADD-OP ---
DATE OF SERVICE: 04/16/2018 ADDENDUM I was assistant plant controller on a performed by Adilene Bronson, who was the primary surgeon.
[2018-04-17] MEDS: Insulin Glargine 30 UNITS in Pre-Filled Syringe 1 EACH SC SCH (21:25)
[2018-04-18 05:32] LABS: Hemoglobin 7.6 g/dL (12.0-16.0); Mean Corpuscular HGB CONC 33.1 g/dL (32.0-36.0); Mean Corpuscular Hemoglobin 24.2 pg (27.0-31.0); Mean Platelet Volume 7.6 fL (7.4-10.4); Platelet Count 285 thou/uL (130-400); RBC Distribution Width 16.4 % (11.5-14.5); Red Blood Cell (RBC) Count 3.14 mill/uL (4.20-5.40); White Blood Cell (WBC) Count 12.3 thou/uL (4.8-10.8)
[2018-04-18] MEDS: Ibuprofen 800 MG TAB PO SCH ×3 (05:33→21:37)
[2018-04-18] MEDS: HYDROcodone/Acetaminophen 10/325 mg Tablet PO PRN ×3 (05:33→20:06)
[2018-04-18] MEDS: NIFEdipine XL 30 MG TAB PO SCH (09:39)
[2018-04-18] MEDS: Prenatal Vitamin 1 TAB PO SCH (09:39)
[2018-04-18] MEDS: Docusate Calcium (SURFAK) 240 MG CAP PO SCH ×2 (09:39→20:08)
[2018-04-18] MEDS: HumaLOG 300 UNITS/3 ML VIAL SC SCH ×3 (09:42→17:57)
--- NOTE | 2018-04-18 11:24 | PDOC.PP ---
Post Progress Note Post Day #: 2 Subjective: Doing well PO intake tolerated: yes Flatus: yes Ambulation: yes Vital Signs (12 hours) Temp Pulse Resp BP BP BP 04/18/18 09:39 105 H 142/79 H 04/18/18 08:05 98.4 F 105 H 16 142/79 H 04/18/18 08:00 98.1 F 105 H 18 04/18/18 04:00 98.4 F 96 20 04/18/18 02:00 98.4 F 96 133/78 04/17/18 23:40 99.2 F 108 H 24 H Weight Weight 267 lb - Physical Examination General: NAD Cardiovascular: no m/r/g Respiratory: clear to auscultation bilaterally Abdominal: + bowel sounds, no distention, appropriately TTP Skin: CS incision dry & intact ([place]) Neurological: no gross focal deficits Psychiatric: A&Ox3, normal affect Result Diagrams: 04/18/18 05:00 04/16/18 06:30 Additional Labs: Post Labs Blood Type A POSITIVE 04/16/18 06:30 Hep Bs Antigen Non-Reactive S/CO (NonReactive) 04/16/18 06:30 (1) Gestational hypertension Code(s): O13.9 - GESTATIONAL HTN W/O SIGNIFICANT PROTEINURIA, UNSP TRIMESTER Status: Acute (2) delivery delivered Code(s): O82 - ENCOUNTER FOR DELIVERY WITHOUT INDICATION Status: Acute (3) Diabetes mellitus complicating Code(s): O24.919 - UNSP DIABETES MELLITUS IN , UNSPECIFIED TRIMESTER Status: Acute - Assessment/Plan 1. Postop: continue care. No evidence ileus 2. DM: sugars acceptible. On insulin 3. HTN: continue procardia 30mg XL QD Probable dsch tomorrow
[2018-04-18] MEDS: Simethicone Chewable 80 MG TAB PO PRN (20:07)
[2018-04-19] MEDS: Insulin Glargine 30 UNITS in Pre-Filled Syringe 1 EACH SC SCH (00:36)
[2018-04-19] MEDS: HYDROcodone/Acetaminophen 10/325 mg Tablet PO PRN ×3 (00:41→14:19)
--- NOTE | 2018-04-19 05:59 | PDOC.PP ---
Post Progress Note Post Day #: 3 Subjective: Feels better after passing gas PO intake tolerated: yes Flatus: yes Ambulation: yes Vital Signs (12 hours) Temp Pulse Resp BP 04/19/18 00:00 98.7 F 113 H 18 143/91 H 04/18/18 20:00 98.8 F 118 H 18 Weight Weight 267 lb - Physical Examination General: NAD Cardiovascular: no m/r/g Respiratory: clear to auscultation bilaterally Abdominal: + bowel sounds, lochia, no distention, appropriately TTP Extremities: negative homans (B) Skin: CS incision dry & intact ([place] in place, C/D/I) Neurological: no gross focal deficits Psychiatric: A&Ox3, normal affect Result Diagrams: 04/18/18 05:00 04/16/18 06:30 Additional Labs: Post Labs Blood Type A POSITIVE 04/16/18 06:30 Hep Bs Antigen Non-Reactive S/CO (NonReactive) 04/16/18 06:30 (1) Gestational hypertension Code(s): O13.9 - GESTATIONAL HTN W/O SIGNIFICANT PROTEINURIA, UNSP TRIMESTER Status: Acute (2) delivery delivered Code(s): O82 - ENCOUNTER FOR DELIVERY WITHOUT INDICATION Status: Acute (3) Diabetes mellitus complicating Code(s): O24.919 - UNSP DIABETES MELLITUS IN , UNSPECIFIED TRIMESTER Status: Acute - Assessment/Plan Class C DM, procardia for HTN...doing well. Labs and sugars reviewed. BPs controlled. I have discussed meds with the patient. We will continue insulin at home along with procardia 30mg po XL QD. Enalapril written in discharge summary by elena, but I recommended to the patient to not fill the enalapril at this time and follow BPs with single agent for now. BP check and fredy out with elena. OK for PM discharge today.
[2018-04-19] MEDS: Ibuprofen 800 MG TAB PO SCH (06:30)
[2018-04-19] MEDS: Prenatal Vitamin 1 TAB PO SCH (08:28)
[2018-04-19] MEDS: Docusate Calcium (SURFAK) 240 MG CAP PO SCH (08:28)
[2018-04-19] MEDS: NIFEdipine XL 30 MG TAB PO SCH (08:28)
[2018-04-19] MEDS: HumaLOG 300 UNITS/3 ML VIAL SC SCH ×2 (08:34→12:54)
[2018-04-19] MEDS ORDERED: Dextrose 5% in Water 1,000 ML IV PRN (11:42)
[2018-04-19] MEDS ORDERED: Dextrose 50% Abboject 50 ML SYRINGE IVP PRN (11:42)
[2018-04-19 11:51] LABS: Glucose Accucheck Confirmation 45 mg/dl (70-105)
[2018-04-19 12:16] VITALS: BP 143/89
[2018-04-19 12:34] VITALS: TEMP 98.2
== END 2018-04-19 14:25 | disposition home or self-care (01) | DRG 765 ==
LOC: L&D 05:11 → 3SW 04-17 10:14
PROVIDERS: ADMIT Obstetrics & Gynecology; ATTEND Obstetrics & Gynecology
PROC: 10D00Z1 Extraction of Products of Conception, Low, Open Approach (ICD-10-PCS; principal; 2018-04-16)
DX: O14.94 Unspecified pre-eclampsia, complicating childbirth (principal); O40.3XX0 Polyhydramnios, third trimester, not applicable or unspecified; Z37.0 Single live birth; Z3A.37 37 weeks gestation of pregnancy; O36.63X0 Maternal care for excessive fetal growth, third trimester, not applicable or unspecified; O24.424 Gestational diabetes mellitus in childbirth, insulin controlled; Z79.4 Long term (current) use of insulin
CPT/HCPCS: 36415; 36416; 51702; 80053; 81003; 83735; 85027; 86780; 86850; 86900; 86901; 87340; J0131; J0360; J2001; J2274; J2405; J2550; J2590; J3475; J3490; Q0162

== ENCOUNTER 2018-04-23 21:52 | Emergency (ER) | payer OTHER ==
[~2018-04-23 21:52] MED LIST changes: -Bicitra 30 ML UDCUP PO SCH; -CEFAZOLIN/Water 2 GM/20 ML SYRINGE SLOW IVP SCH; +ISOVUE-370 76%-LOCM 1 ML ONE; -Ondansetron HCl/PF 4 MG/2 ML Vial IVP PRN; -Promethazine HCl 25 MG/ML VIAL IM PRN
[2018-04-23] MEDS ORDERED: Morphine 4 MG/ML VIAL ONE (22:37)
[2018-04-23] MEDS ORDERED: Ondansetron ODT 8 MG TAB ONE (22:38)
[2018-04-23 23:10] LABS: #Eosinphils 0.2 thou/uL (0.0-0.7); #Lymphocytes 2.8 thou/uL (1.20-3.40); #Neutrophils 6.6 thou/uL (1.40-6.50); %Basophils 0.3 % (0.0-1.0); %Lymphocytes 26.1 % (21.0-51.0); %Monocytes 9.3 % (0.0-10.0); %Neutrophils 62.3 % (42.0-75.0); Hemoglobin 8.1 g/dL (12.0-16.0); Mean Corpuscular Hemoglobin 23.9 pg (27.0-31.0); Mean Corpuscular Volume 72.5 fl (81.0-99.0); Mean Platelet Volume 6.7 fL (7.4-10.4); Platelet Count 514 thou/uL (130-400); RBC Distribution Width 16.1 % (11.5-14.5); Red Blood Cell (RBC) Count 3.39 mill/uL (4.20-5.40); White Blood Cell (WBC) Count 10.6 thou/uL (4.8-10.8)
[2018-04-23 23:30] LABS: ALT (SGPT) 23 U/L (8-55); AST (SGOT) 16 U/L (5-34); Albumin 3.2 g/dL (3.5-5.0); Alkaline Phosphatase 129 U/L (40-150); Anion Gap 14 mmol/L (10-20); BUN (Urea Nitrogen) 10 mg/dL (7.0-18.7); Bilirubin, Total 0.7 mg/dL (0.2-1.2); Calc. Creatinine Clearance 0 mL/min (70-130); Calcium 8.9 mg/dL (7.8-10.44); Carbon Dioxide 21 mmol/L (22-29); Chloride 108 mmol/L (98-107); Estimated GFR-MDRD Greater than 90; Globulin 3.8 g/dL (2.4-3.5); Glucose 86 mg/dL (70-105); Lipase 13 U/L (8-78); Potassium 3.8 mmol/L (3.5-5.1); Sodium 139 mmol/L (136-145)
--- NOTE | 2018-04-23 23:32 | CT ---
CT OF THE ABDOMEN AND PELVIS WITH CONTRAST 04/23/18 COMPARISON: None. HISTORY: Abdominal pain that worsened today and fever. Patient had a one week ago. TECHNIQUE: Multiple contiguous axial images were obtained in a CT of the abdomen and pelvis with contrast. Coron al reformats were performed. FINDINGS: Hyperdense material in the dependent aspect of the gallbladder may represent gallstones or calcificat ion in the gallbladder wall. No biliary dilatation is seen. The liver, kidneys, adrenal glands, splee n, and pancreas are unremarkable. The uterus is enlarged consistent with patient's recent state. A small amount of free fluid is seen in the right pericolic gutter and adjacent to the liver. No loculated fluid collection is seen in the abdomen or pelvis. The large and small bowel are normal in caliber. There are stranding changes in the lower abdominal wall from prior surgery. Atelectasis is seen in th e left lung base. The bones are unremarkable. IMPRESSION: 1. Cholelithiasis versus calcification of the gallbladder wall. 2. Enlarged recently uterus. 3. Nonspecific small amount of free fluid in the abdomen. 1. POS: OS[facility]
[2018-04-24 00:21] LABS: Bilirubin Negative (Negative); Blood, Urine Large (Negative); Clarity CLEAR (Clear); Glucose, Urine (Dipstick) Negative (Negative); Leukocyte Small (Negative); Nitrite Negative (Negative); Protein, Urine (Dipstick) Negative (Neg-Trace)
[2018-04-24 00:25] LABS: Bacteria/HPF None Seen HPF (None Seen); Hyaline Casts/LPF 0-3 HYALINE CAST LPF (0-3 Hyaline); Pathc Cast-AUWi Flag 0.29 (0-2.49); RBC/HPF 0-3 HPF (0-3); Squamous Epithelial 0-3 HPF (0-3)
[2018-04-24 00:26] LABS: Specific Gravity, Urine 1.048 (1.002-1.036)
== END 2018-04-24 00:40 | disposition home or self-care (01) ==
LOC: ERS 21:52
DX: O99.89 Other specified diseases and conditions complicating pregnancy, childbirth and the puerperium (principal); R10.9 Unspecified abdominal pain; O86.20 Urinary tract infection following delivery, unspecified; O99.345 Other mental disorders complicating the puerperium; F31.9 Bipolar disorder, unspecified; O24.13 Pre-existing type 2 diabetes mellitus, in the puerperium; E11.9 Type 2 diabetes mellitus without complications; O99.215 Obesity complicating the puerperium; Z79.899 Other long term (current) drug therapy
CPT/HCPCS: 74177; 80053; 81003; 81015; 83690; 85025; 96361; 96374; J2270

== ENCOUNTER 2018-05-25 07:45 | Emergency (ER) | payer OTHER ==
[2018-05-25 08:30] LABS: #Eosinphils 0.1 thou/uL (0.0-0.7); #Lymphocytes 2.2 thou/uL (1.20-3.40); #Monocytes 0.6 thou/uL (0.11-0.59); #Neutrophils 4.7 thou/uL (1.40-6.50); %Basophils 0.4 % (0.0-1.0); %Eosinophils 1.1 % (0.0-10.0); %Lymphocytes 28.9 % (21.0-51.0); %Neutrophils 61.7 % (42.0-75.0); Hemoglobin 9.2 g/dL (12.0-16.0); Mean Corpuscular HGB CONC 32.3 g/dL (32.0-36.0); Mean Corpuscular Hemoglobin 22.6 pg (27.0-31.0); Mean Corpuscular Volume 69.9 fL (78.0-98.0); Mean Platelet Volume 8.3 fL (7.4-10.4); Platelet Count 391 thou/uL (130-400); RBC Distribution Width 17.1 % (11.5-14.5); Red Blood Cell (RBC) Count 4.05 mill/uL (4.20-5.40); White Blood Cell (WBC) Count 7.6 thou/uL (4.8-10.8)
[2018-05-25 08:34] LABS: BHCG - Serum Negative (NEGATIVE); Pregs Control Background? CLEAR/WHITE (CLR/WHITE); Pregs Control Bar Appear? YES (CONTROL BAR)
[2018-05-25 10:05] LABS: Bilirubin Negative (Negative); Blood, Urine Large (Negative); Clarity CLEAR (Clear); Glucose, Urine (Dipstick) Negative (Negative); Leukocyte Small (Negative); Nitrite Negative (Negative); Protein, Urine (Dipstick) 30 mg/dL (Neg-Trace); Specific Gravity, Urine 1.016 (1.002-1.036); Urobilinogen 0.2 mg/dL (0.2-1.0)
[2018-05-25 10:07] LABS: Bacteria/HPF None Seen HPF (None Seen); Pathc Cast-AUWi Flag 2.18 (0-2.49); RBC/HPF 21-50 HPF (0-3)
--- NOTE | 2018-05-25 10:11 | ULT ---
ULTRASOND PELVIS: HISTORY: Six weeks . . Vaginal bleeding. COMPARISON: 07/30/17. TECHNIQUE: Transabdominal and endovaginal imaging of the pelvis is performed. Ovaries are interrogated with gra y scale, color flow, Doppler imaging, and spectral waveform analysis. FINDINGS: Uterus is identified, measuring 9.8 x 5.8 x 7.7 cm. There are no myometrial masses. Endometrium has a thickened but homogeneous echotexture measuring 1.7 cm. Both ovaries have a normal echotexture. Right ovary measures 1.4 x 1.2 x 1.1 cm. The left ovary víctor sures 4.4 x 2.2 x 3.4 cm. In the right ovary, there is an anechoic focus compatible with ovarian cys t measuring 2.0 x 2.5 x 2.0 cm. OVARIAN DOPPLER: Vascular flow to both ovaries. IMPRESSION: Right ovarian cyst. Otherwise, unremarkable exam. POS: [facility]
[2018-05-25 10:35] LABS: Hyaline Casts/LPF 0-3 HYALINE CAST LPF (0-3 Hyaline); Renal Epithelial 0-3 HPF (0-3); Transitional Epithelial 0-3 HPF (0-3)
== END 2018-05-25 11:59 | disposition home or self-care (01) ==
LOC: ERS 07:45
DX: N93.9 Abnormal uterine and vaginal bleeding, unspecified (principal); E66.9 Obesity, unspecified; E11.9 Type 2 diabetes mellitus without complications; F31.9 Bipolar disorder, unspecified; Z79.899 Other long term (current) drug therapy
CPT/HCPCS: 36415; 76856; 81003; 81015; 84703; 85025

== ENCOUNTER 2018-12-27 20:52 | Emergency (ER) | payer OTHER ==
--- NOTE | 2018-12-27 21:37 | RAD ---
PORTABLE CHEST: HISTORY: Chest pain. Shortness of breath. COMPARISON: 07/22/2017 FINDINGS: Heart size and mediastinum are within normal limits. Lungs are clear of infiltrates. No significant bony findings. IMPRESSION: No active intrathoracic disease. POS: [facility]
[2018-12-27] MEDS ORDERED: Sodium Chloride 0.9% 100 ML ONE (21:44)
[2018-12-27] MEDS ORDERED: Pantoprazole 40 MG VIAL ONE (21:44)
[2018-12-27] MEDS ORDERED: Metoclopramide HCl 10 MG/2 ML VIAL ONE (21:44)
[2018-12-27 21:47] LABS: ALT (SGPT) 14 U/L (8-55); AST (SGOT) 13 U/L (5-34); Albumin 4.4 g/dL (3.5-5.0); Alkaline Phosphatase 128 U/L (40-150); Anion Gap 15 mmol/L (10-20); BUN (Urea Nitrogen) 11 mg/dL (7.0-18.7); Bilirubin, Total 0.3 mg/dL (0.2-1.2); Calc. Creatinine Clearance 0 mL/min (70-130); Calcium 10.2 mg/dL (7.8-10.44); Carbon Dioxide 21 mmol/L (22-29); Chloride 100 mmol/L (98-107); Estimated GFR-MDRD 74; Globulin 4.1 g/dL (2.4-3.5); Glucose 469 mg/dL (70-105); Potassium 4.1 mmol/L (3.5-5.1); Protein, Total 8.5 g/dL (6.0-8.3); Sodium 132 mmol/L (136-145)
[2018-12-27 21:56] LABS: #Basophils 0.1 thou/uL (0.0-0.2); #Lymphocytes 1.9 thou/uL (1.20-3.40); #Monocytes 0.6 thou/uL (0.11-0.59); #Neutrophils 3.6 thou/uL (1.40-6.50); %Eosinophils 0.2 % (0.0-10.0); %Lymphocytes 30.7 % (21.0-51.0); %Monocytes 10.2 % (0.0-10.0); %Neutrophils 57.9 % (42.0-75.0); Anisocytosis SLIGHT = 6-15 cells (100X) (0-5/hpf); MDiff Complete? YES; Mean Corpuscular HGB CONC 32.5 g/dL (32.0-36.0); Mean Corpuscular Hemoglobin 23.1 pg (27.0-31.0); Mean Corpuscular Volume 71.2 fL (78.0-98.0); Mean Platelet Volume 9.2 fL (7.4-10.4); Microcytosis SLIGHT = 6-15 cells (100X) (0-5/hpf); Platelet Count 356 thou/uL (130-400); RBC Distribution Width 15.2 % (11.5-14.5); Red Blood Cell (RBC) Count 5.63 mill/uL (4.20-5.40); White Blood Cell (WBC) Count 6.2 thou/uL (4.8-10.8)
[2018-12-27 22:16] LABS: BHCG - Serum Negative (NEGATIVE); Pregs Control Background? CLEAR/WHITE (CLR/WHITE); Pregs Control Bar Appear? YES (CONTROL BAR)
--- NOTE | 2018-12-27 23:04 | CT ---
CT ANGIOGRAM CHEST WITH 3D RENDERING: HISTORY: Dyspnea. Tachycardia. Family history of pulmonary embolism. Substernal chest pain. FINDINGS: No evidence for acute pulmonary parenchymal process. No pleural effusion or pericardial effusion. N o CT evidence for acute pulmonary embolism. No evidence for aortic aneurysm or dissection. The visu alized upper abdomen is unremarkable. IMPRESSION: 1. Unremarkable chest computed tomography angiography. 2. No CT evidence for acute pulmonary embolism. 3. No evidence for aortic aneurysm or dissection or other acute process. POS: [facility]
[2018-12-28] MEDS ORDERED: Ketorolac Tromethamine 30 MG/ML VIAL ONE (00:01)
[2018-12-28] MEDS ORDERED: Insulin Regular 300 UNITS/3 ML VIAL ONE (00:24)
== END 2018-12-28 00:30 | disposition home or self-care (01) ==
LOC: ERS 20:52
DX: R07.89 Other chest pain (principal); E11.65 Type 2 diabetes mellitus with hyperglycemia; E66.9 Obesity, unspecified; F31.9 Bipolar disorder, unspecified; Z79.899 Other long term (current) drug therapy
CPT/HCPCS: 36416; 71045; 71275; 80053; 82010; 82550; 83605; 83690; 84484; 84703; 85025; 93005; 94760; 96365; 96366; 96375; C9113; J1815; J1885; J2765; J7050; Q9966

== ENCOUNTER 2019-09-13 19:59 | Emergency (ER) | payer OTHER ==
[2019-09-13 20:44] LABS: #Eosinphils 0.2 thou/uL (0.0-0.7); #Lymphocytes 3.3 thou/uL (1.20-3.40); #Monocytes 0.5 thou/uL (0.11-0.59); #Neutrophils 6.1 thou/uL (1.40-6.50); %Basophils 0.5 % (0.0-1.0); %Eosinophils 1.9 % (0.0-10.0); %Lymphocytes 32.7 % (21.0-51.0); %Monocytes 4.6 % (0.0-10.0); %Neutrophils 60.4 % (42.0-75.0); Hemoglobin 11.9 g/dL (12.0-16.0); Mean Corpuscular HGB CONC 32.9 g/dL (32.0-36.0); Mean Corpuscular Hemoglobin 24.4 pg (27.0-31.0); Mean Corpuscular Volume 74.2 fL (78.0-98.0); Mean Platelet Volume 7.2 fL (7.4-10.4); Platelet Count 325 thou/uL (130-400); RBC Distribution Width 14.1 % (11.5-14.5); Red Blood Cell (RBC) Count 4.89 mill/uL (4.20-5.40); White Blood Cell (WBC) Count 10.1 thou/uL (4.8-10.8)
[2019-09-13 20:47] LABS: BHCG - Serum Negative (NEGATIVE); Pregs Control Background? CLEAR/WHITE (CLR/WHITE); Pregs Control Bar Appear? YES (CONTROL BAR)
[2019-09-13 21:00] LABS: ALT (SGPT) 13 U/L (8-55); AST (SGOT) 12 U/L (5-34); Albumin 4.3 g/dL (3.5-5.0); Alkaline Phosphatase 105 U/L (40-110); Anion Gap 11 mmol/L (10-20); BUN (Urea Nitrogen) 8 mg/dL (7.0-18.7); Bilirubin, Total 0.2 mg/dL (0.2-1.2); Calc. Creatinine Clearance 0 mL/min (70-130); Calcium 9.1 mg/dL (7.8-10.44); Carbon Dioxide 25 mmol/L (22-29); Chloride 109 mmol/L (98-107); Estimated GFR-MDRD Greater than 90; Globulin 3.8 g/dL (2.4-3.5); Glucose 116 mg/dL (70-105); Potassium 3.6 mmol/L (3.5-5.1); Protein, Total 8.1 g/dL (6.0-8.3); Sodium 141 mmol/L (136-145)
[2019-09-13] MEDS ORDERED: Ondansetron ODT 4 MG TAB ONE (21:42)
--- NOTE | 2019-09-13 22:12 | ULT ---
Exam: Right upper quadrant ultrasound: HISTORY: Abdominal pain COMPARISON: CT abdomen on 04/23/2018. FINDINGS: Liver: Mild increased echogenicity suggesting fatty infiltration. Gallbladder: There is shadowing from the gallbladder fossa which may represent a gallbladder filled w ith gallbladder calculi in the absence of prior cholecystectomy. No definitive gallbladder calculi were seen on prior CT scan examination, CT scan examination is less sensitive for evaluation of gallb ladder calculi. However there was partial calcification of the wall the gallbladder seen on prior CT exam. Some of the images do suggest a tiny wall echo shadow. No pericholecystic fluid or gallbladd er wall thickening is appreciated. Reworker does note a sonographically positive Maldonado's sign. Common bile duct: The common duct is normal in caliber measuring 5 mm in diameter. Pancreas: Limited visualized portions of the pancreas demonstrate a normal sonographic appearance. Right kidney: Right kidney demonstrates a normal sonographic appearance. The right kidney measures 1 1.8 cm in length. IVC: The visualized IVC demonstrates a normal sonographic appearance. IMPRESSION: 1. Shadowing from the region of the gallbladder fossa which suggests a gallbladder filled with multip le gallbladder calculi in the absence of a history of prior cholecystectomy. As noted above, no definite gallbladder calculi were seen on prior CT exam; although, CT is less sensitive for evaluatio n of gallbladder calculi. However, on the prior CT exam, there are was calcification involving the portion of the wall of the gallbladder. No pericholecystic fluid is appreciated. Reworker pritchett s note a positive sonographic Maldonado's sign. Depending on clinical concern for cholecystitis, a hepatobiliary study may be helpful for further evaluation. 2. Common duct is normal in caliber. 3. Mild fatty infiltration of the liver.
== END 2019-09-13 22:47 | disposition home or self-care (01) ==
LOC: ERS 19:59
DX: K80.20 Calculus of gallbladder without cholecystitis without obstruction (principal); R11.2 Nausea with vomiting, unspecified; E78.5 Hyperlipidemia, unspecified; E78.00 Pure hypercholesterolemia, unspecified; E11.9 Type 2 diabetes mellitus without complications; F31.9 Bipolar disorder, unspecified; Z79.899 Other long term (current) drug therapy
CPT/HCPCS: 36415; 76705; 80053; 83690; 84703; 85025; Q0162

== ENCOUNTER 2019-10-04 06:05 | Outpatient (CLI) | payer OTHER ==
[2019-10-04 12:18] LABS: #Eosinphils 0.3 thou/uL (0.0-0.7); #Lymphocytes 2.4 thou/uL (1.20-3.40); #Monocytes 0.7 thou/uL (0.11-0.59); %Eosinophils 2.6 % (0.0-10.0); %Lymphocytes 20.8 % (21.0-51.0); %Neutrophils 70.6 % (42.0-75.0); Hemoglobin 11.2 g/dL (12.0-16.0); Mean Corpuscular HGB CONC 33.9 g/dL (32.0-36.0); Mean Corpuscular Hemoglobin 25.1 pg (27.0-31.0); Mean Corpuscular Volume 74.2 fL (78.0-98.0); Mean Platelet Volume 7.5 fL (7.4-10.4); Platelet Count 327 thou/uL (130-400); RBC Distribution Width 14.4 % (11.5-14.5); Red Blood Cell (RBC) Count 4.46 mill/uL (4.20-5.40); White Blood Cell (WBC) Count 11.3 thou/uL (4.8-10.8)
[2019-10-04 12:40] LABS: BHCG - Serum Negative (NEGATIVE); Pregs Control Background? CLEAR/WHITE (CLR/WHITE); Pregs Control Bar Appear? YES (CONTROL BAR)
[2019-10-04 14:45] LABS: ALT (SGPT) 10 U/L (8-55); AST (SGOT) 9 U/L (5-34); Albumin 4.1 g/dL (3.5-5.0); Alkaline Phosphatase 140 U/L (40-110); Anion Gap 17 mmol/L (10-20); BUN (Urea Nitrogen) 6 mg/dL (7.0-18.7); Bilirubin, Direct 0.2 mg/dL (0.1-0.3); Bilirubin, Total 0.4 mg/dL (0.2-1.2); Calc. Creatinine Clearance 0 mL/min (70-130); Calcium 8.9 mg/dL (7.8-10.44); Carbon Dioxide 19 mmol/L (22-29); Chloride 108 mmol/L (98-107); Estimated GFR-MDRD Greater than 90; Glucose 141 mg/dL (70-105); Potassium 3.9 mmol/L (3.5-5.1); Sodium 140 mmol/L (136-145)
--- NOTE | 2019-10-06 18:47 | EKG ---
Test Reason : Blood Pressure : / mmHG Vent. Rate : 094 BPM Atrial Rate : 094 BPM P-R Int : 172 ms QRS Dur : 092 ms QT Int : 370 ms P-R-T Axes : 032 041 000 degrees QTc Int : 462 ms Normal sinus rhythm Normal ECG When compared with ECG of 27-DEC-2018 21:03, T wave inversion no longer evident in Anterior leads Confirmed by DR. Angy SPRINGER ([id number]) on 10/06/2019 6:46:40 PM Referred By: HARMEET Confirmed By:DR. Angy SPRINGER
== END 2019-10-04 06:06 | disposition home or self-care (01) ==
LOC: LABBT 06:05
PROVIDERS: ATTEND Surgery
DX: Z01.818 Encounter for other preprocedural examination (principal); K80.20 Calculus of gallbladder without cholecystitis without obstruction
CPT/HCPCS: 80048; 80076; 84703; 85025; 93005; 93010

== ENCOUNTER 2019-10-05 05:59 | Day surgery (SDC) | payer OTHER ==
[2019-10-04 12:02] VITALS: BMI 40.1
[2019-10-05] MEDS ORDERED: Fentanyl 100 MCG/2 ML VIAL ONE ×4 (06:11→08:50)
[2019-10-05] MEDS ORDERED: Bupivacaine HCl 0.5%/Epinephrine 1:200,000/PF 30 ml Vial ONE (07:08)
[2019-10-05] MEDS ORDERED: Promethazine HCl 25 MG/ML VIAL ONE ×2 (08:28→10:07)
--- NOTE | 2019-10-05 08:42 | OP ---
DATE OF PROCEDURE: 10/05/2019 PREOPERATIVE DIAGNOSIS: Gallstones. POSTOPERATIVE DIAGNOSIS: Gallstones. PROCEDURE PERFORMED: Laparoscopic cholecystectomy. ANESTHESIA: General. ESTIMATED BLOOD LOSS: Minimal. COMPLICATIONS: None. SPECIMEN: Gallbladder. FINDINGS: Chronic cholecystitis. PROCEDURE IN DETAIL: The patient was taken to the operating room and laid supine on the operating room table. After general anesthetic was obtained, the abdomen was prepped and draped in a sterile fashion. A curved incision was made below the umbilicus. Cautery was used to dissect down to the umbilical fascia. Umbilical fascia was incised and held up using a Mona. The abdominal cavity was entered using a Tiff clamp. Holding stitch of Vicryl was placed on each side of the fascia. Eagle trocar was placed. High-flow pneumoperitoneum was obtained. An upper midline 5 mm port and 2 right upper quadrant 5 mm ports were placed under direct camera visualization. The gallbladder was retracted from the gallbladder fossa. The peritoneum of the gallbladder was opened anteriorly and posteriorly. The critical view triangle was seen showing only the cystic duct and cystic artery branching from medial to lateral. There were no other branching structures. Two clips were placed proximally on the cystic duct and one laterally. It was cut using laparoscopic scissors. The cystic artery was taken in the same way. Electrocautery was then used to dissect the gallbladder out of the gallbladder fossa. The gallbladder was placed in an Endo catch bag and brought out through the Eagle. There was no bleeding or bile in the liver bed. The cystic duct stump and cystic artery stump were intact, without evidence of extravasation or bleeding. All port sites were infiltrated using local anesthesia. All ports were removed under camera visualization. Pneumoperitoneum was let down. The Vicryl was used to close the fascial defect below the umbilicus. All incisions were irrigated and closed using 4-0 Monocryl and Dermabond. The patient was en route to Recovery in stable condition. All instrument counts, needle counts and lap counts were correct. Job ID: [id number]
[2019-10-05] MEDS ORDERED: Succinylcholine Chloride 20 MG/ML 10 ml SYRINGE FS ONE (09:28)
[2019-10-05] MEDS ORDERED: PROPOFOL 200 MG/20 ML VIAL ONE (09:28)
[2019-10-05] MEDS ORDERED: Ondansetron PF 4 MG/2 ML Vial ONE (09:28)
[2019-10-05] MEDS ORDERED: Rocuronium Bromide 10 MG/ML (10ML VIAL) ONE (09:28)
[2019-10-05] MEDS ORDERED: Glycopyrrolate 0.2 MG/ML 5 ML SYRINGE ONE (09:28)
[2019-10-05] MEDS ORDERED: Lidocaine 1% PF 5 ML VIAL ONE (09:28)
[2019-10-05] MEDS ORDERED: Morphine 2 MG/ML SYRINGE ONE (10:07)
[2019-10-05] MEDS ORDERED: Scopolamine 1.5 mg/72 hour Patch ONE (11:23)
[2019-10-05] MEDS ORDERED: Ondansetron ODT 4 MG TAB ONE (12:06)
== END 2019-10-05 12:23 | disposition home or self-care (01) ==
LOC: SDC 05:59
PROVIDERS: ATTEND Surgery
PROC: 0FT44ZZ Resection of Gallbladder, Percutaneous Endoscopic Approach (ICD-10-PCS; principal; 2019-10-05)
DX: K80.10 Calculus of gallbladder with chronic cholecystitis without obstruction (principal); E11.9 Type 2 diabetes mellitus without complications; Z79.4 Long term (current) use of insulin; Z79.899 Other long term (current) drug therapy
CPT/HCPCS: 36416; 88304; J0670; J0690; J2001; J2270; J2405; J2550; J2704; J3010; Q0162

== ENCOUNTER 2020-10-19 17:10 | Emergency (ER) | payer BC, SELFPAY ==
[2020-10-19] MEDS ORDERED: Ondansetron ODT 4 MG TAB ONE (17:15)
[2020-10-20 01:57] LABS: SARS-CoV-2 MS2 Positive; SARS-CoV-2 N Gene Negative; SARS-CoV-2 S Gene Negative; SARS-CoV-2 by NAA Not Detected (NotDetected); SARS-CoV-2 orf1ab Negative
== END 2020-10-19 17:30 | disposition home or self-care (01) ==
LOC: ERS 17:10
DX: R19.7 Diarrhea, unspecified (principal); R11.0 Nausea; Z20.828 Contact with and (suspected) exposure to other viral communicable diseases; E78.5 Hyperlipidemia, unspecified; E78.00 Pure hypercholesterolemia, unspecified; E11.9 Type 2 diabetes mellitus without complications; F31.9 Bipolar disorder, unspecified
CPT/HCPCS: 87635; 99283; Q0162; U0003

== ENCOUNTER 2021-01-30 20:55 | Emergency (ER) | payer OTHER, SELFPAY ==
[2021-01-30 21:33] LABS: #Basophils 0.1 thou/uL (0.0-0.2); #Lymphocytes 3.4 thou/uL (1.20-3.40); #Monocytes 0.8 thou/uL (0.11-0.59); #Neutrophils 6.2 thou/uL (1.40-6.50); %Basophils 0.7 % (0.0-1.0); %Eosinophils 0.4 % (0.0-10.0); %Lymphocytes 32.1 % (21.0-51.0); %Monocytes 7.8 % (0.0-10.0); %Neutrophils 59.2 % (42.0-75.0); Hemoglobin 10.6 g/dL (12.0-16.0); Mean Corpuscular HGB CONC 33.3 g/dL (32.0-36.0); Mean Corpuscular Hemoglobin 24.7 pg (27.0-31.0); Mean Corpuscular Volume 74.3 fL (78.0-98.0); Mean Platelet Volume 8.2 fL (7.4-10.4); Platelet Count 341 thou/uL (130-400); White Blood Cell (WBC) Count 10.5 thou/uL (4.8-10.8)
[2021-01-30 22:45] LABS: Bacteria/HPF None Seen HPF (None Seen); Bilirubin Negative (Negative); Blood, Urine Negative (Negative); Clarity Clear (Clear); Glucose, Urine (Dipstick) Normal (Negative); Ketone, Urine Negative (Negative); Leukocyte 75 Leu/uL (Negative); Mucous/LPF Rare LPF (<2+); Nitrite Negative (Negative); Protein, Urine (Dipstick) 30 mg/dL (Neg-Trace); RBC/HPF 0-3 HPF (0-3); Specific Gravity, Urine 1.026 (1.002-1.036); WBC/HPF 0-3 HPF (0-3); pH, Urine 6.5 (5.0-9.0)
[2021-01-30] MEDS ORDERED: Ondansetron PF 4 MG/2 ML Vial ONE (23:01)
[2021-01-30] MEDS ORDERED: Acetaminophen 500 MG TAB ONE (23:01)
[2021-01-30] MEDS ORDERED: Morphine 4 MG/ML VIAL ONE (23:01)
[2021-01-31] MEDS ORDERED: Ondansetron PF 4 MG/2 ML Vial ONE (00:01)
[2021-01-31 23:29] LABS: Chlamydia by PCR Not Detected (NotDetected); GC by PCR Not Detected (NotDetected)
== END 2021-01-31 00:22 | disposition short-term general hospital (02) ==
LOC: ERS 20:55
DX: O99.891 Other specified diseases and conditions complicating pregnancy (principal); R10.32 Left lower quadrant pain; O99.281 Endocrine, nutritional and metabolic diseases complicating pregnancy, first trimester; E78.00 Pure hypercholesterolemia, unspecified; E11.9 Type 2 diabetes mellitus without complications; Z3A.01 Less than 8 weeks gestation of pregnancy; Z79.84 Long term (current) use of oral hypoglycemic drugs; Z79.899 Other long term (current) drug therapy
CPT/HCPCS: 36415; 76856; 81003; 81015; 84702; 85025; 86900; 86901; 87480; 87491; 87510; 87591; 87660; 96374; 96375; 96376; J2270; J2405

== ENCOUNTER 2021-02-16 10:24 | Emergency (ER) | payer OTHER ==
[2021-02-16 11:15] LABS: #Basophils 0.1 thou/uL (0.0-0.2); #Eosinphils 0.1 thou/uL (0.0-0.7); #Lymphocytes 2.9 thou/uL (1.20-3.40); #Monocytes 0.6 thou/uL (0.11-0.59); #Neutrophils 5.2 thou/uL (1.40-6.50); %Basophils 0.9 % (0.0-1.0); %Eosinophils 0.7 % (0.0-10.0); %Lymphocytes 32.5 % (21.0-51.0); %Monocytes 7.1 % (0.0-10.0); %Neutrophils 58.7 % (42.0-75.0); Hemoglobin 10.9 g/dL (12.0-16.0); Mean Corpuscular HGB CONC 33.2 g/dL (32.0-36.0); Mean Corpuscular Hemoglobin 24.7 pg (27.0-31.0); Mean Corpuscular Volume 74.5 fL (78.0-98.0); Mean Platelet Volume 7.5 fL (7.4-10.4); Platelet Count 365 thou/uL (130-400); RBC Distribution Width 15.2 % (11.5-14.5); Red Blood Cell (RBC) Count 4.41 mill/uL (4.20-5.40); White Blood Cell (WBC) Count 8.9 thou/uL (4.8-10.8)
[2021-02-16 11:54] LABS: MDiff Complete? YES; Microcytosis SLIGHT = 6-15 cells (100X) (0-5/hpf); Platelet Morphology Comment Appears Adequate
[2021-02-16] MEDS ORDERED: Acetaminophen 500 MG TAB ONE (12:19)
== END 2021-02-16 14:00 | disposition home or self-care (01) ==
LOC: ERS 10:24
DX: O00.90 Unspecified ectopic pregnancy without intrauterine pregnancy (principal); O99.891 Other specified diseases and conditions complicating pregnancy; E78.00 Pure hypercholesterolemia, unspecified; E11.9 Type 2 diabetes mellitus without complications; Z79.84 Long term (current) use of oral hypoglycemic drugs; Z79.899 Other long term (current) drug therapy
CPT/HCPCS: 76856; 84702; 85025; 86850; 86900; 86901

== ENCOUNTER 2021-08-16 14:19 | Emergency (ER) | payer OTHER ==
[2021-08-16] MEDS ORDERED: Ondansetron PF 4 MG/2 ML Vial ONE (15:03)
[2021-08-16] MEDS ORDERED: Ketorolac Tromethamine 30 MG/ML VIAL ONE (15:08)
[2021-08-16 15:17] LABS: #Lymphocytes 1.8 thou/uL (1.20-3.40); #Monocytes 0.7 thou/uL (0.11-0.59); #Neutrophils 4.8 thou/uL (1.40-6.50); %Basophils 0.2 % (0.0-1.0); %Eosinophils 0.1 % (0.0-10.0); %Lymphocytes 24.5 % (21.0-51.0); %Monocytes 9.8 % (0.0-10.0); %Neutrophils 65.5 % (42.0-75.0); Mean Corpuscular HGB CONC 31.9 g/dL (32.0-36.0); Mean Corpuscular Hemoglobin 23.4 pg (27.0-31.0); Mean Corpuscular Volume 73.2 fL (78.0-98.0); Mean Platelet Volume 8.3 fL (7.4-10.4); Platelet Count 375 thou/uL (130-400); RBC Distribution Width 15.3 % (11.5-14.5); Red Blood Cell (RBC) Count 5.58 mill/uL (4.20-5.40); White Blood Cell (WBC) Count 7.3 thou/uL (4.8-10.8)
[2021-08-16 15:36] LABS: MDiff Complete? YES; Microcytosis SLIGHT = 6-15 cells (100X) (0-5/hpf); Platelet Morphology Comment Appears Adequate
[2021-08-16 15:37] LABS: ALT (SGPT) 25 U/L (8-55); AST (SGOT) 21 U/L (5-34); Albumin 4.2 g/dL (3.5-5.0); Alkaline Phosphatase 101 U/L (40-110); Anion Gap 15 mmol/L (10-20); BUN (Urea Nitrogen) 13 mg/dL (7.0-18.7); Bilirubin, Total 0.2 mg/dL (0.2-1.2); Calc. Creatinine Clearance 0 mL/min (70-130); Calcium 9.6 mg/dL (7.8-10.44); Carbon Dioxide 24 mmol/L (22-29); Chloride 106 mmol/L (98-107); Globulin 4.3 g/dL (2.4-3.5); Glucose 163 mg/dL (70-105); Potassium 3.6 mmol/L (3.5-5.1); Protein, Total 8.5 g/dL (6.0-8.3); Sodium 141 mmol/L (136-145)
== END 2021-08-16 18:39 | disposition home or self-care (01) ==
LOC: ERS 14:19
DX: U07.1 COVID-19 (principal); R11.2 Nausea with vomiting, unspecified; E78.00 Pure hypercholesterolemia, unspecified; E11.9 Type 2 diabetes mellitus without complications; Z79.4 Long term (current) use of insulin; Z79.899 Other long term (current) drug therapy
CPT/HCPCS: 36416; 71045; 80053; 85025; 93005; 96374; 96375; J1885; J2405